=== PATIENT | female | born 1985 | race Caucasian/White ===

== ENCOUNTER 2023-03-25 01:57 | Emergency (ER) | payer MEDICAID, SELFPAY ==
[2023-03-25 02:00] VITALS: BP 120/64; PULSE 91; RESP 20; TEMP 36.3; BMI 31.2
--- NOTE | 2023-03-25 02:17 | CT_ITS ---
HISTORY: chest pain and abdominal pain. TECHNIQUE: CTA chest, abdomen, and pelvis was obtained after the intravenous administration of 100 mL Isovue-370 with sagittal and coronal reconstructed MIP views. A radiation dose optimization technique was used for this scan. 932 images. COMPARISON: None. FINDINGS: Chest- CENTRAL AIRWAYS: Grossly patent. LUNGS: Minimal dependent lower lobe atelectasis. PLEURA: No pneumothorax or significant pleural effusion. HEART/PERICARDIUM: Heart within normal limits in size. No significant pericardial effusion. VESSELS: No aortic aneurysm or dissection flap. No filling defect in the pulmonary arteries. MEDIASTINUM/CLARA: No pathologically enlarged lymphadenopathy. OSSEOUS STRUCTURES: Intact. Abdomen and pelvis- BOWEL: Bowel including appendix nondilated. Moderate stool in the colon. No focal pericolonic inflammatory change. PERITONEUM: No free air or significant ascites. LIVER/SPLEEN: No enhancing masses. GALLBLADDER: Gallbladder present. PANCREAS/KIDNEYS/ADRENAL GLANDS: Unremarkable. VESSELS: No abdominal aortic aneurysm or dissection flap. Patent abdominal aorta and origins of the celiac axis, superior and inferior mesenteric, bilateral renal, and bilateral iliac arteries. Right femoral approach central venous catheter tip in the right external iliac artery with trace air and hemorrhage in the right groin. PELVIC ORGANS: Unremarkable . BODY WALL: Tiny fat-containing umbilical hernia. OSSEOUS STRUCTURES: Intact. CT/CTA Chst, Abd, Pel W and/or WO IMPRESSION: No evidence for aortic dissection, aortic aneurysm, or pulmonary embolism. No acute abnormality identified in the chest. Moderate stool in the colon. Right femoral line as above. Electronically Signed: Nga Izaguirre MD at 8:17 EDT ,
--- NOTE | 2023-03-25 02:17 | EKG12_ITS ---
Test Reason : Blood Pressure : / mmHG Vent. Rate : 086 BPM Atrial Rate : 086 BPM P-R Int : 128 ms QRS Dur : 084 ms QT Int : 350 ms P-R-T Axes : 025 -05 008 degrees QTc Int : 418 ms Normal sinus rhythm Normal ECG Confirmed by RAUL MARQUEZ, PIPPA ([id number]), editor sound DIANE MEDLEY ([id number]) on 03/27/2023 11:00:40 A M Referred By: TL Confirmed By:CHAD CARTER MD
--- NOTE | 2023-03-25 02:20 | ED.VIS.CHEST ---
HPI <Dr. King Chase DO - Last Filed: 03/26/23 10:34> History of Present Illness Chief Complaint: Chest Pain Informant: patient and spouse/S.O. Narrative Narrative: Presenting here with multiple complaints. Reports severe chest abdominal pain this evening that almost made her call 911. However living 2 blocks away her sick mother brought her here. Reports been vomiting significantly for a week unable keep anything down for the last 2 days. Has dysuria for the past week saw healthcare provider on Macrobid with continued symptoms. In addition states she had an elective surgical [id number] 2 months ago she was 15 weeks in. She has had a menstrual period 2 weeks ago. States having severe migraines in for 2 days without any head trauma. Denies fevers. States had productive cough also. Denies any previous similar symptoms in the past. Prior Similar Symptoms: No PFSH <Dr. King Chase DO - Last Filed: 03/26/23 10:34> PFSH Medical History no medical history Home Medications nitrofurantoin monohydrate/macrocrystals 100 mg capsule 100 mg PO Q12H 03/25/23 [History Last Taken Unknown] ondansetron 4 mg disintegrating tablet 4 mg PO Q8H PRN PRN Nausea #10 tabs 03/25/23 [Rx Last Taken Unknown] polyethylene glycol 3350 17 gram/dose oral powder (Laxative PEG 3350) 17 g PO .qd-bid PRN constipation #119 grams 03/25/23 [Rx Last Taken Unknown] Allergy/AdvReac Type Severity Reaction Status Date / Time levofloxacin [From Levaquin] Allergy Hives Verified 03/25/23 02:49 Penicillins Allergy Hives Verified 03/25/23 02:49 Surgical History no surgical history Social History Smoking Status: Current every day smoker tobacco type: e-cigarettes ROS <Dr. King Chase DO - Last Filed: 03/26/23 10:34> ROS ED Constitutional Constitutional ED: Denies chills, fever(s) or sweats Eyes Eyes: Denies change in vision ENT ENT ED: Denies dysphagia or sore throat Cardiovascular Cardiovascular: Reports chest pain; Denies leg edema, palpitations or racing heartbeat Respiratory/Chest Respiratory/Chest: Reports cough; Denies dyspnea or dyspnea on exertion Gastrointestinal Gastrointestinal: Reports abdominal pain, nausea and vomiting; Denies diarrhea Genitourinary Genitourinary ED: Reports dysuria; Denies hematuria or urinary frequency Musculoskeletal Musculoskeletal: Denies back pain, extremity pain or neck pain Integumentary Denies rash or wounds Neurologic Neurologic: Reports headache(s); Denies paresthesias or weakness EXAM <Dr. King Chase DO - Last Filed: 03/26/23 10:34> Physical Exam Const Vital Signs: 03/25/23 02:00 03/25/23 05:00 03/25/23 05:32 Temperature 97.4 F L Temperature Source Oral Pulse Rate 91 73 77 Respiratory Rate 20 H 13 12 Blood Pressure 120/64 106/51 L 93/52 L Blood Pressure Mean 82 69 65 Pulse Ox 96 95 Oxygen Delivery Method Room Air Room Air Room Air 03/25/23 06:00 03/25/23 08:47 Temperature Temperature Source Pulse Rate 66 88 Respiratory Rate 22 H 14 Blood Pressure 106/67 100/54 L Blood Pressure Mean 80 69 Pulse Ox 94 94 Oxygen Delivery Method Room Air Room Air Positive well nourished and well developed General Appearance ED: well developed and NAD HEENT Reports moist mucous membranes normocephalic and atraumatic Eyes PERRL, EOMs intact bilaterally and conjunctivae normal General Eye ED: Yes normal appearance of both eyes Neck no lymphadenopathy and supple Neck Narrative: No meningismus. General: Negative for tenderness Chest Wall Chest: Negative for tenderness Resp normal respiratory effort and normal air movement Effort and Inspection: symmetric chest movement; Negative for respiratory distress Cardio regular rate, regular rhythm and no murmurs Peripheral Pulses: pulses 2+ throughout GI normal to inspection, nondistended, normoactive bowel sounds GI Narrative: Mild epigastric tenderness there is no guarding or rebound. Negative Alfonso's or McBurney's tenderness. Palpation: Negative for guarding or rebound tenderness present Back/Spine no CVA tenderness and no thoracic nor lumbar tenderness Extremity normal to inspection General Extremety ED: Negative for edema or tenderness General Extremity: Negative for edema Neuro oriented x3, CN's II-XII intact bilaterally and no sensory deficits noted Sensorium / Orientation: awake and alert Skin no rashes or lesions noted and no wounds <Dr. Jatin Manning MD - Last Filed: 03/25/23 09:33> Physical Exam Const Vital Signs: 03/25/23 02:00 03/25/23 05:00 03/25/23 05:32 Temperature 97.4 F L Temperature Source Oral Pulse Rate 91 73 77 Respiratory Rate 20 H 13 12 Blood Pressure 120/64 106/51 L 93/52 L Blood Pressure Mean 82 69 65 Pulse Ox 96 95 Oxygen Delivery Method Room Air Room Air Room Air 03/25/23 06:00 03/25/23 08:47 Temperature Temperature Source Pulse Rate 66 88 Respiratory Rate 22 H 14 Blood Pressure 106/67 100/54 L Blood Pressure Mean 80 69 Pulse Ox 94 94 Oxygen Delivery Method Room Air Room Air MDM <Dr. King Chase, DO - Last Filed: 03/26/23 10:34> MDM MDM Narrative Medical decision making narrative: Interventions / MDM: Differential diagnosis: Chest pain, ACS, aortic dissection, migraine headaches, UTI Diagnosis considered but do not suspect: N/A My EKG interpretation: Sinus rate of 86, no ST changes isolated T wave version lead III. Nonspecific. Imaging independently reviewed and interpreted by myself: CTA chest abdomen pelvis pending External documents reviewed: N/A Test considered but not ordered:N/A ED course: Patient vital stable no focal neurologic deficits, no meningismus. Patient with multiple complaints headache severe chest pains abdominal pain with vomiting. EKG normal. Abdominal labs, troponin. With reports severe pain chest abdomen established for preparation for dissection rule out. Reports persistent dysuria. Urine also obtain. She treated with fluids, Reglan and Benadryl for her nausea and headache symptoms. 0430: Nursing increasing difficulty try to get IV access. Evaluated ultrasound, she had left sided brachial vein, attempted, flash of blood, however would not draw back and infiltrated with saline. Evaluate right arm, she had no cephalic or basilar veins. She had brachial vein next to the brachial artery, however this was 2 cm deep, attempted access x2, initial trial had flash of blood, however there was no drawback. Reattempted with redirectional of 20-gauge Angiocath, unable to access. Discussed with patient this time for central line access to obtain blood and plan on CT scans. Risks and benefits discussed. 0530: Written consent for central line placement with risks and benefits. Due to hospital policy from radiology no IV contrast dye through IJ or EJ. Only subclavian's versus femoral lines. Discussed femoral line placement. Patient placed in reverse Trendelenburg, skin was prepped with ChloraPrep. 1% lidocaine for local analgesia. Ultrasound-guided Seldinger technique isolation of the vein for stick with dark blood return. Guidewire skin incision dilation triple-lumen cath placed with no difficulties. Secured. All 3 lines flushed with dark blood return. Biopatch was placed. Dressing placed over. Patient tolerated procedure well. 0700: Clinically feeling much better nausea move take improving. Her labs White count of 12.2 hemoglobin 12 normal lipase and liver enzymes are creatinine 0.84. Troponin was negative. CT scan is pending at this time for chest abdomen pelvis. Pending urine results. Patient will be signed out to morning physician, Dr. Manning. Re-evaluation: Disposition discussed with patient/family/significant other: Patient and significant other Case discussed with consulting clinician: N/A This note was generated with [employer] dictation software. It may contain incorrect words, spelling, and punctuation that were not noted in checking the note before signing. Lab Data Attestation: I reviewed the patient's lab results. Labs: Laboratory Results - last 24 hr 03/25/23 03/25/23 03/25/23 05:28 05:28 06:00 WBC Cancelled 12.2 H Corrected WBC Cancelled RBC Cancelled 3.86 L Hgb Cancelled 12.1 Hct Cancelled 35.9 L MCV Cancelled 93.0 MCH Cancelled 31.3 MCHC Cancelled 33.7 RDW Std Deviation Cancelled 50.3 H RDW Coeff of Malina Cancelled 14.9 H Plt Count Cancelled 315 MPV Cancelled 11.0 Immature Gran % (Auto) Cancelled 0.300 Neut % (Auto) Cancelled 76.0 H Lymph % (Auto) Cancelled 17.7 L [place] % (Auto) Cancelled 5.1 Eos % (Auto) Cancelled 0.7 Baso % (Auto) Cancelled 0.2 Absolute Neuts (auto) Cancelled 9.3 H Absolute Lymphs (auto) Cancelled 2.15 Total Counted Cancelled Neutrophils % (Manual) Cancelled Band Neutrophils % Cancelled Lymphocytes % (Manual) Cancelled Monocytes % (Manual) Cancelled Eosinophils % (Manual) Cancelled Basophils % (Manual) Cancelled Metamyelocytes % Cancelled Myelocytes % Cancelled Promyelocytes % Cancelled Blast Cells % Cancelled Plasma Cell % (Manual) Cancelled Other Cells % Cancelled Nucleated RBC % Cancelled 0 Nucleated RBCs/100 WBC Cancelled Differential Comment Cancelled Diff Path Review Cancelled Hypersegmented Neuts Cancelled Atypical Lymphocytes Cancelled Reactive Lymphocytes Cancelled Smudge Cells Cancelled Toxic Granulation Cancelled Toxic Vacuolation Cancelled Dohle Bodies Cancelled Tamra Rods Cancelled Platelet Estimate Cancelled Plt Morphology Comment Cancelled RBC Morphology Cancelled Cancelled Polychromasia Cancelled Hypochromasia Cancelled Poikilocytosis Cancelled Basophilic Stippling Cancelled Anisocytosis Cancelled Microcytosis Cancelled Macrocytosis Cancelled Spherocytes Cancelled Sickle Cells Cancelled Target Cells Cancelled Tear Drop Cells Cancelled Ovalocytes Cancelled Stomatocytes Cancelled Benson-Gwinn Bodies Cancelled Brodnax Cells Cancelled Bite Cells Cancelled Crenated Cell Cancelled Acanthocytes (Spur) Cancelled Rouleaux Cancelled Schistocytes Cancelled PT Cancelled INR Cancelled APTT Cancelled Sodium 137 Potassium 4.2 Chloride 104 Carbon Dioxide 29.0 Anion Gap 4 L BUN 12 Creatinine 0.84 Estim Creat Clear Calc 79.95 Est GFR (MDRD) Af Amer 98 Est GFR (MDRD) Non-Af 81 BUN/Creatinine Ratio 14.3 Glucose 110 H Calcium 9.5 Total Bilirubin 0.30 AST 16 ALT 21 Alkaline Phosphatase 62 Troponin I High Sens 7 Total Protein 7.3 Albumin 3.8 Globulin 3.5 Albumin/Globulin Ratio 1.1 Lipase 35 Serum , Qual NEGATIVE Urine Color Urine Clarity Urine pH Ur Specific Moira Urine Protein Urine Glucose (UA) Urine Ketones Urine Occult Blood Urine Nitrite Urine Bilirubin Urine Urobilinogen Ur Leukocyte Esterase 03/25/23 03/25/23 06:17 06:55 WBC Corrected WBC RBC Hgb Hct MCV MCH MCHC RDW Std Deviation RDW Coeff of Malina Plt Count MPV Immature Gran % (Auto) Neut % (Auto) Lymph % (Auto) [place] % (Auto) Eos % (Auto) Baso % (Auto) Absolute Neuts (auto) Absolute Lymphs (auto) Total Counted Neutrophils % (Manual) Band Neutrophils % Lymphocytes % (Manual) Monocytes % (Manual) Eosinophils % (Manual) Basophils % (Manual) Metamyelocytes % Myelocytes % Promyelocytes % Blast Cells % Plasma Cell % (Manual) Other Cells % Nucleated RBC % Nucleated RBCs/100 WBC Differential Comment Diff Path Review Hypersegmented Neuts Atypical Lymphocytes Reactive Lymphocytes Smudge Cells Toxic Granulation Toxic Vacuolation Dohle Bodies Tamra Rods Platelet Estimate Plt Morphology Comment RBC Morphology Polychromasia Hypochromasia Poikilocytosis Basophilic Stippling Anisocytosis Microcytosis Macrocytosis Spherocytes Sickle Cells Target Cells Tear Drop Cells Ovalocytes Stomatocytes Benson-Gwinn Bodies Brodnax Cells Bite Cells Crenated Cell Acanthocytes (Spur) Rouleaux Schistocytes PT 14.5 INR 1.1 APTT 29.8 Sodium Potassium Chloride Carbon Dioxide Anion Gap BUN Creatinine Estim Creat Clear Calc Est GFR (MDRD) Af Amer Est GFR (MDRD) Non-Af BUN/Creatinine Ratio Glucose Calcium Total Bilirubin AST ALT Alkaline Phosphatase Troponin I High Sens Total Protein Albumin Globulin Albumin/Globulin Ratio Lipase Serum , Qual Urine Color Yellow Urine Clarity Clear Urine pH 6.0 Ur Specific [place] 1.025 Urine Protein 30 H Urine Glucose (UA) Normal Urine Ketones 50 H Urine Occult Blood 10 H Urine Nitrite Negative Urine Bilirubin Negative Urine Urobilinogen Normal Ur Leukocyte Esterase 25 H Radiography Diagnostic Testing: Clinical Impression(s) from Imaging Studies Chest/Abdomen/Pelvis CTA 03/25/23 02:17 IMPRESSION: No evidence for aortic dissection, aortic aneurysm, or pulmonary embolism. No acute abnormality identified in the chest. Moderate stool in the colon. Right femoral line as above. Electronically Signed: Nga Izaguirre MD at 8:17 EDT Reading Location ID and State: [facility] / [place] Tel , Service support , <Dr. Jatin Manning MD - Last Filed: 03/25/23 09:33> [facility] Lab Data Labs: Laboratory Results - last 24 hr 03/25/23 03/25/23 03/25/23 05:28 05:28 06:00 WBC Cancelled 12.2 H Corrected WBC Cancelled RBC Cancelled 3.86 L Hgb Cancelled 12.1 Hct Cancelled 35.9 L MCV Cancelled 93.0 MCH Cancelled 31.3 MCHC Cancelled 33.7 RDW Std Deviation Cancelled 50.3 H RDW Coeff of Malina Cancelled 14.9 H Plt Count Cancelled 315 MPV Cancelled 11.0 Immature Gran % (Auto) Cancelled 0.300 Neut % (Auto) Cancelled 76.0 H Lymph % (Auto) Cancelled 17.7 L [place] % (Auto) Cancelled 5.1 Eos % (Auto) Cancelled 0.7 Baso % (Auto) Cancelled 0.2 Absolute Neuts (auto) Cancelled 9.3 H Absolute Lymphs (auto) Cancelled 2.15 Total Counted Cancelled Neutrophils % (Manual) Cancelled Band Neutrophils % Cancelled Lymphocytes % (Manual) Cancelled Monocytes % (Manual) Cancelled Eosinophils % (Manual) Cancelled Basophils % (Manual) Cancelled Metamyelocytes % Cancelled Myelocytes % Cancelled Promyelocytes % Cancelled Blast Cells % Cancelled Plasma Cell % (Manual) Cancelled Other Cells % Cancelled Nucleated RBC % Cancelled 0 Nucleated RBCs/100 WBC Cancelled Differential Comment Cancelled Diff Path Review Cancelled Hypersegmented Neuts Cancelled Atypical Lymphocytes Cancelled Reactive Lymphocytes Cancelled Smudge Cells Cancelled Toxic Granulation Cancelled Toxic Vacuolation Cancelled Dohle Bodies Cancelled Tamra Rods Cancelled Platelet Estimate Cancelled Plt Morphology Comment Cancelled RBC Morphology Cancelled Cancelled Polychromasia Cancelled Hypochromasia Cancelled Poikilocytosis Cancelled Basophilic Stippling Cancelled Anisocytosis Cancelled Microcytosis Cancelled Macrocytosis Cancelled Spherocytes Cancelled Sickle Cells Cancelled Target Cells Cancelled Tear Drop Cells Cancelled Ovalocytes Cancelled Stomatocytes Cancelled Benson-Gwinn Bodies Cancelled Brodnax Cells Cancelled Bite Cells Cancelled Crenated Cell Cancelled Acanthocytes (Spur) Cancelled Rouleaux Cancelled Schistocytes Cancelled PT Cancelled INR Cancelled APTT Cancelled Sodium 137 Potassium 4.2 Chloride 104 Carbon Dioxide 29.0 Anion Gap 4 L BUN 12 Creatinine 0.84 Estim Creat Clear Calc 79.95 Est GFR (MDRD) Af Amer 98 Est GFR (MDRD) Non-Af 81 BUN/Creatinine Ratio 14.3 Glucose 110 H Calcium 9.5 Total Bilirubin 0.30 AST 16 ALT 21 Alkaline Phosphatase 62 Troponin I High Sens 7 Total Protein 7.3 Albumin 3.8 Globulin 3.5 Albumin/Globulin Ratio 1.1 Lipase 35 Serum , Qual NEGATIVE Urine Color Urine Clarity Urine pH Ur Specific [place] Urine Protein Urine Glucose (UA) Urine Ketones Urine Occult Blood Urine Nitrite Urine Bilirubin Urine Urobilinogen Ur Leukocyte Esterase 03/25/23 03/25/23 06:17 06:55 WBC Corrected WBC RBC Hgb Hct MCV MCH MCHC RDW Std Deviation RDW Coeff of Malina Plt Count MPV Immature Gran % (Auto) Neut % (Auto) Lymph % (Auto) [place] % (Auto) Eos % (Auto) Baso % (Auto) Absolute Neuts (auto) Absolute Lymphs (auto) Total Counted Neutrophils % (Manual) Band Neutrophils % Lymphocytes % (Manual) Monocytes % (Manual) Eosinophils % (Manual) Basophils % (Manual) Metamyelocytes % Myelocytes % Promyelocytes % Blast Cells % Plasma Cell % (Manual) Other Cells % Nucleated RBC % Nucleated RBCs/100 WBC Differential Comment Diff Path Review Hypersegmented Neuts Atypical Lymphocytes Reactive Lymphocytes Smudge Cells Toxic Granulation Toxic Vacuolation Dohle Bodies Tamra Rods Platelet Estimate Plt Morphology Comment RBC Morphology Polychromasia Hypochromasia Poikilocytosis Basophilic Stippling Anisocytosis Microcytosis Macrocytosis Spherocytes Sickle Cells Target Cells Tear Drop Cells Ovalocytes Stomatocytes Benson-Gwinn Bodies Brodnax Cells Bite Cells Crenated Cell Acanthocytes (Spur) Rouleaux Schistocytes PT 14.5 INR 1.1 APTT 29.8 Sodium Potassium Chloride Carbon Dioxide Anion Gap BUN Creatinine Estim Creat Clear Calc Est GFR (MDRD) Af Amer Est GFR (MDRD) Non-Af BUN/Creatinine Ratio Glucose Calcium Total Bilirubin AST ALT Alkaline Phosphatase Troponin I High Sens Total Protein Albumin Globulin Albumin/Globulin Ratio Lipase Serum , Qual Urine Color Yellow Urine Clarity Clear Urine pH 6.0 Ur Specific [place] 1.025 Urine Protein 30 H Urine Glucose (UA) Normal Urine Ketones 50 H Urine Occult Blood 10 H Urine Nitrite Negative Urine Bilirubin Negative Urine Urobilinogen Normal Ur Leukocyte Esterase 25 H Radiography Diagnostic Testing: Clinical Impression(s) from Imaging Studies Chest/Abdomen/Pelvis CTA 03/25/23 02:17 IMPRESSION: No evidence for aortic dissection, aortic aneurysm, or pulmonary embolism. No acute abnormality identified in the chest. Moderate stool in the colon. Right femoral line as above. Electronically Signed: Nga Izaguirre MD at 8:17 EDT , Treatment and Re-Evaluation Comments:: Patient checked out to me. Clinically patient is doing well. Vital signs are normal. CT chest, abdomen, pelvis results were noted I reviewed the images and the results with her I agree with. Basically significant amount of stool in the colon, and negative for anything acute in the chest, abdomen, pelvis. Negative for aortic dissection, aneurysm, and for PE. Discussed with the patient, she has been constipated lately. It is possible that is what was causing this. Cardiac testing was already done and unremarkable. I offered her enema, other medications here, she declines, her urinalysis is noted and unremarkable. We discussed prescriptions, she would except a prescription for MiraLAX and Zofran, does not sound like she is having a lot of abdominal pains it does not require dicyclomine right now, it was more chest discomfort. Procedure note: Right femoral vein central line removal --sutures gently cut with a #10 blade, removed without difficulty, line removed without difficulty in its entirety, pressure held with gauze, dressing placed afterwards, no significant bleeding, tolerated well no complications. Discharge Plan Triage Chief Complaint: Chest Pain ED Provider: King Chase Dx/Rx/DC Orders Clinical Impression: Dysuria, Headache, Abdominal pain, Chest pain, Vomiting, Constipation Instructions: ED Chest Pain, Noncardiac, ED Constipation (Adult) Prescriptions: New ondansetron [ondansetron] 4 mg tablet,disintegrating 4 mg PO Q8H PRN PRN (Reason: Nausea) Qty: 10 0RF polyethylene glycol 3350 [Laxative PEG 3350] 17 gram/dose powder 17 g PO .qd-bid PRN (Reason: constipation) Qty: 119 0RF No Action nitrofurantoin monohyd/m-cryst 100 mg capsule 100 mg PO Q12H Patient Comments: TAKE 1 CAPSULE ORALLY EVERY 12 HOURS WITH A MEAL/FOOD SWALLOW WHOLE DO NOT OPEN/CRUSH/DISSOLVE/CHEW Primary Care Provider: Care Physician,No Primary Referrals: Donis Regalado DO [Med Staff - Technology Applications Consultant] - 1 Week if not improving Disposition Disposition: Home, Self Care Discharge Date/Time: 03/25/23 09:36
[2023-03-25 05:00] VITALS: BP 106/51; PULSE 73; RESP 13; O2SAT 96
[2023-03-25 05:32] VITALS: BP 93/52; PULSE 77; RESP 12; O2SAT 95
[2023-03-25] MEDS: 0.9% Normal Saline 1,000 ML 1000 ML IV (05:40)
[2023-03-25] MEDS: Metoclopramide 10 MG/2 ML Vial IV (05:43)
[2023-03-25] MEDS: DiphenhydrAMINE 50 MG/ML Syringe 25 MG IV (05:45)
[2023-03-25 06:00] VITALS: BP 106/67; PULSE 66; RESP 22; O2SAT 94
[2023-03-25 06:03] LABS: Internal QC Validated? YES +Cl - CLEAR BKGD; Pregnancy, Serum, hCG Quali. NEGATIVE Negative
[2023-03-25 06:05] LABS: ALB/GLOB Ratio 1.1 RATIO (0.9-2.4); AST(SGOT) 16 U/L (15-37); Alanine Aminotransfer ALT/SGPT 21 U/L (13-56); Albumin, Serum 3.8 g/dL (3.2-5.0); Alkaline Phosphatase 62 U/L (45-117); Anion Gap 4 (5-15); BUN 12 mg/dL (7-18); BUN/Creat Ratio 14.3 RATIO (10-20); Calcium,Total 9.5 mg/dL (8.5-10.1); Chloride 104 mmol/L (98-107); Creatinine, Serum 0.84 mg/dL (0.55-1.02); EST Glomerular Filtration Rate 81 mL/min (>60); Est Glom Filt Rate - Afr Amer 98 mL/min (>60); Estimated Creatinine Clearance 79.95 ml/min; Globulin 3.5 g/dL (2.2-4.2); Glucose 110 mg/dL (74-106); Lipase 35 U/L (13-75); Potassium 4.2 mmol/L (3.5-5.1); Protein, Total 7.3 g/dL (6.4-8.2); Sodium Level 137 mmol/L (136-145); Troponin-I HS 7 pg/mL (3.0-54.0)
[2023-03-25 06:08] LABS: Absolute Lymphocyte Count 2.15 X10^3/uL (0.83-4.51); Absolute Neutrophil Count 9.3 X10^3/uL (2.0-7.7); Basophil# 0.03 X10^3/uL; Basophil% 0.2 % (0-1); Eosinophil# 0.08 X10^3/uL; Eosinophils% 0.7 % (0-5); Hematocrit 35.9 % (37-47); Hemoglobin 12.1 g/dL (12.0-15.0); Lymphocyte # 2.15 X10^3/ul (0.83-4.51); Lymphocyte % 17.7 % (19-41); Mean Corp Hgb Conc 33.7 g/dL (32-36); Mean Corpuscular Hgb 31.3 pg (27.0-32.0); Monocyte# 0.62 X10^3/uL; Monocyte% 5.1 % (0-10); NRBC Flagged by Analyzer 0 % (0-5); Neutrophil # 9.26 X10^3/uL (2.7-7.7); Platelet Count 315 K/mm3 (150-450); RBC Distribution Width CV 14.9 % (11.6-14.6); RBC Distribution Width SD 50.3 fl (35.1-43.9); Red Blood Count 3.86 M/mm3 (4.2-5.4); White Blood Count 12.2 K/mm3 (4.4-11.0)
[2023-03-25 06:33] LABS: International Normalized Ratio 1.1; Prothrombin Time (Protime)PT. 14.5 SECONDS (11.7-14.9)
[2023-03-25 06:34] LABS: Partial Thromboplast Time 29.8 Seconds (24.1-36.2)
--- NOTE | 2023-03-25 06:35 | ED.RN ---
0500: PT IS AN EXTREMELY DIFFICULT IV STICK. NUMEROUS ATTEMPTS BY VARIOUS NURSES UNSUCCESSFUL. CONSENT OBTAINED FOR RIGHT FEMORAL CENTRAL LINE TO BE PERFORMED BY DR. REBOLLEDO.
[2023-03-25 07:07] LABS: Mucous, Urine 0 SEEN /hpf (<or=2+)
[2023-03-25 07:08] LABS: Color, Urine Yellow (Yellow); Glucose, Dipstick Normal (Normal); Ketone-Dipstick 50 mg/dl (Negative); Leukocyte Esterase-Dipstick 25 /ul (Negative); Nitrite-Dipstick Negative (Negative); Occult Blood-Urine 10 /ul (Negative); Protein-Dipstick 30 mg/dl (Negative); Specific Gravity, Urine 1.025 (1.002-1.030); Urine Bilirubin Dipstick Negative (Negative); Urine Clarity Clear (Clear); Urine Urobilinogen Normal (Normal)
[2023-03-25 08:47] VITALS: BP 100/54; PULSE 88; RESP 14; O2SAT 94
[2023-03-25 09:34] LABS: Bacteria 1+ /hpf (None Seen); Red Blood Cells-Urine 0-5 SEEN /hpf (0-5); Squamous Epithelial Cells - UA 0-5 SEEN /hpf (5-10); White Blood Cells 5-10 SEEN /hpf (0-5)
[2023-03-25 09:36] VITALS: BP 129/88; PULSE 72; RESP 16; O2SAT 98
== END 2023-03-25 09:36 | disposition home or self-care (01) ==
PROVIDERS: Emergency Provider Emergency Medicine; Visit Provider Emergency Medicine
DX: R30.0 Dysuria (principal); R11.2 Nausea with vomiting, unspecified; R07.9 Chest pain, unspecified; K59.00 Constipation, unspecified; R10.9 Unspecified abdominal pain; F17.290 Nicotine dependence, other tobacco product, uncomplicated; R51.9 Headache, unspecified
CPT/HCPCS: 36556; 71275; 74174; 80053; 81001; 83690; 84484; 84703; 85025; 85610; 85730; 93005; 96374; 96375; 99283; J7030; Q9967; A4216

== ENCOUNTER 2023-04-13 05:18 | Emergency (ER) | payer MEDICAID, SELFPAY ==
[2023-04-13 05:19] VITALS: BP 136/65; PULSE 110; RESP 18; TEMP 37; O2SAT 97; BMI 32.8
--- NOTE | 2023-04-13 05:20 | ED.VIS.CHEST ---
HPI History of Present Illness Chief Complaint: Chest Pain Detail of Chief Complaint: Intermittent for months. Informant: patient Onset/Context/Timing Onset: Month(s) Activity at onset: gradual Timing: Intermittent Quality: Positive for Sharp and Stabbing Location: Right Chest and Left Chest Current Severity: Moderate Maximum Severity: Moderate Worsened By: Nothing Relieved By: Nothing Associated Symptoms: Negative for Nausea, Vomiting, Diaphoresis, Dyspnea, Cough, Fever, Lightheadedness, Acid Reflux or Palpitations Narrative Narrative: 37-year-old female history of drug abuse. Currently is abusing fentanyl. States that she has had intermittent chest pain for months. It comes and goes. Not particularly made better or worse by anything. Not exertional. She is never any history of DVT or PE. No cardiac history. Denies any chest wall trauma. Denies any recent travel, surgery or immobilization. She was seen for the same pain 19 days ago in this emergency department had extensive work-up lab work and a CTA of her chest abdomen pelvis all of which was negative. There was no PE or DVT. She is crying and upset. There is definitely an anxiety component here. Prior Similar Symptoms: Yes Recent Illness/Hospitalization: No CVD Risk Factors: Negative for Hypertension or Diabetes PE Risk Factors: Negative for Recent Travel/Surgery, Recent Immobilization, Prior DVT or PE, Cancer or OCP + Smoking + >/=35 TAD Risk Factors: Negative for Marfan's Syndrome PFSH PFSH Home Medications nitrofurantoin monohydrate/macrocrystals 100 mg capsule 100 mg PO Q12H 03/25/23 [History Last Taken Unknown] ondansetron 4 mg disintegrating tablet 4 mg PO Q8H PRN PRN Nausea #10 tabs 03/25/23 [Rx Last Taken Unknown] polyethylene glycol 3350 17 gram/dose oral powder (Laxative PEG 3350) 17 g PO .qd-bid PRN constipation #119 grams 03/25/23 [Rx Last Taken Unknown] Allergy/AdvReac Type Severity Reaction Status Date / Time levofloxacin [From Levaquin] Allergy Hives Verified 03/25/23 02:49 Penicillins Allergy Hives Verified 03/25/23 02:49 Social History Smoking Status: Current every day smoker tobacco type: e-cigarettes ROS ROS ED ROS Narrative Chest pain. Review of Systems ROS Unobtainable: Denies due to encephalopathy Constitutional Constitutional ED: Denies chills or fever(s) Eyes Eyes: Reports none Cardiovascular Cardiovascular: Reports as per HPI and chest pain Respiratory/Chest Respiratory/Chest: Denies cough Gastrointestinal Gastrointestinal: Denies abdominal pain, nausea or vomiting Genitourinary Genitourinary ED: Denies dysuria Musculoskeletal Musculoskeletal: Denies arthralgias Integumentary Denies abscess Neurologic Neurologic: Denies headache(s) Psychiatric Psychiatric: Denies anxiety Endocrine Endocrinology: Denies cold intolerance Hematologic/Lymphatic Hematologic/Lymphatic: Denies easy bleeding Allergic/Immunologic Allergic/Immunologic ED: Denies mouth swelling EXAM Physical Exam Narrative Exam Narrative: Well-appearing 37-year-old female. Vital signs are stable afebrile. She is crying and emotionally upset. Significant other is at the bedside. H EENT exam unremarkable. Neck nontender no JVD. No lymphadenopathy. Lungs clear to auscultation bilaterally. Heart regular rhythm. Rate of 90. No murmur. Chest wall nontender. Abdomen soft nontender. Moving all 4 extremities. Equal symmetrical radial pulses. Calves are nontender without edema or cords. Back nontender. Skin unremarkable except for multiple tattoos. No rashes. She is awake and alert. She is moving all 4 extremities. Const Positive well nourished and well developed; Negative for obese, cachectic, contractures or unkempt General Appearance ED: well developed and NAD; Negative for unkempt, cachectic, contractures or pallor Nutritional Appearance: Negative for cachectic or obese HEENT Reports moist mucous membranes normocephalic and atraumatic; Negative for trauma or tenderness Eyes EOMs intact bilaterally General Eye ED: Negative for pale conjunctiva or scleral icterus Neck no lymphadenopathy, supple and no JVD General: Negative for tenderness Chest Wall inspection of chest normal and palpation of chest normal Chest: Negative for tenderness Resp normal respiratory effort and clear to auscultation bilaterally Effort and Inspection: Negative for respiratory distress Auscultation: Negative for rales, rhonchi or wheezes Cardio regular rate, regular rhythm, S1 normal heart sound, S2 normal heart sound and no murmurs Peripheral Pulses: pulses 2+ throughout GI normal to inspection, nondistended, normoactive bowel sounds, soft to palpation, non-tender, non-distended and no masses Back/Spine no CVA tenderness and no thoracic nor lumbar tenderness General Back: Negative for CVA tenderness Cervical Spine: Negative for cervical spine tenderness Extremity normal to inspection General Extremety ED: Negative for edema, pulses abnormal or tenderness General Extremity: Negative for edema or pulses abnormal Neuro oriented x3 and CN's II-XII intact bilaterally Sensorium / Orientation: awake, alert, oriented to person, oriented to place and oriented to time; Negative for confused, lethargic or stuporous Motor Exam: strength 5/5 throughout Psych mental status grossly normal Appearance: Negative for unkempt Attitude: No agitated Mood & Affect: Negative for depressed, anxious or tearful Skin no rashes or lesions noted and no wounds General Skin Exam: Negative for jaundice or pallor Rashes: No rashes noted Trauma: Negative for abrasion Heart Score History: Slightly/Non-Suspicious ECG: Normal Age: </= 45 years Risk Factors: No Risk Factors Troponin: </= Normal Limit Score: 0 MDM MDM MDM Narrative Medical decision making narrative: 37-year-old emotionally upset female with a history of drug abuse. Having atypical nonexertional chest pain. She had extensive work-up 19 days ago here including a CTA of her chest abdomen and pelvis all was unremarkable. Troponin was normal. There was no PE. I discussed with her that her exam is unremarkable. She has had extensive work-up. I offered her detox which she does not want to be admitted to the hospital for. She can be discharged home. Motrin and Tylenol for pain. Follow-up with 180 or decide if she would like inpatient detox. History & Record Review Discussion w/independent historian: Patient Lab Data Lab results narrative: I reviewed the patient's recent evaluation about 19 days ago. It was unremarkable. CBC, chemistry, troponin, and UA were all negative. CTA of the chest abdomen pelvis was unremarkable with no signs of PE nor dissection. EKG today is unremarkable with a rate of 85. Rhythm Strip Rhythm Strip: Sinus Rhythm Rate: 85 Ectopy: None EKG Initial EKG: Attestation: I personally reviewed and interpreted this EKG as follows: Interpretation: Sinus Rhythm and No Acute Injury Pattern Comments: Normal sinus rhythm rate 85 no acute signs of MA, nor ischemia nor pericarditis. No S1Q3T3. Discharge Plan Triage Chief Complaint: Chest Pain ED Provider: Provider,Ed Physician Dx/Rx/DC Orders Clinical Impression: History of drug abuse, Chest pain, Anxiety Instructions: ED Chest Pain, Uncertain Cause, ED Drug Abuse Prescriptions: No Action nitrofurantoin monohyd/m-cryst 100 mg capsule 100 mg PO Q12H Patient Comments: TAKE 1 CAPSULE ORALLY EVERY 12 HOURS WITH A MEAL/FOOD SWALLOW WHOLE DO NOT OPEN/CRUSH/DISSOLVE/CHEW ondansetron [ondansetron] 4 mg tablet,disintegrating 4 mg PO Q8H PRN PRN (Reason: Nausea) Qty: 10 0RF polyethylene glycol 3350 [Laxative PEG 3350] 17 gram/dose powder 17 g PO .qd-bid PRN (Reason: constipation) Qty: 119 0RF Primary Care Provider: Care Physician,No Primary Referrals: Esha Gatica [Non-Staff] - As soon as possible Care Physician,No Primary [Primary Care Provider] - [facility] [Non-Staff] - As soon as possible Activity Restrictions/Additional Instructions: I reviewed your ER visit 2 to 3 weeks ago. It was completely normal. Including a CAT scan of your chest abdomen and pelvis. There was no blood clots. No signs of heart attack. Motrin and Tylenol for pain Strongly consider following up with the [facility] program for outpatient treatment for drug abuse. Disposition Disposition: Home, Self Care
--- NOTE | 2023-04-13 05:50 | EKG12_ITS ---
Test Reason : CP Blood Pressure : / mmHG Vent. Rate : 085 BPM Atrial Rate : 085 BPM P-R Int : 118 ms QRS Dur : 078 ms QT Int : 362 ms P-R-T Axes : 040 004 007 degrees QTc Int : 430 ms Normal sinus rhythm Normal ECG Confirmed by BRENT MARQUEZ, NATIVIDAD ([id number]), features editor DIANE MEDLEY ([id number]) on 04/13/2023 1:23:05 PM Referred By: Walter Confirmed By:NATIVIDAD KENNEDY MD
[2023-04-13 06:00] VITALS: BP 136/65; PULSE 99; RESP 18; O2SAT 97
== END 2023-04-13 06:00 | disposition home or self-care (01) ==
LOC: ED 05:37
PROVIDERS: Emergency Provider Emergency Medicine; Visit Provider Emergency Medicine
DX: R07.89 Other chest pain (principal); F11.10 Opioid abuse, uncomplicated; F41.9 Anxiety disorder, unspecified; F17.290 Nicotine dependence, other tobacco product, uncomplicated
CPT/HCPCS: 93005; 99282

== ENCOUNTER 2023-05-01 19:07 | Emergency (ER) | payer MEDICAID, SELFPAY ==
[2023-05-01 19:08] VITALS: BP 147/101; PULSE 56; RESP 18; TEMP 36.6; O2SAT 98; BMI 31.7
--- NOTE | 2023-05-01 20:08 | EDS_ITS ---
HPI History of Present Illness Chief Complaint: General Illness Informant: patient Onset/Context/Timing Onset: Month(s) Context: Gradual Onset Timing: Continuous Current Severity: Mild Maximum Severity: Mild Narrative Narrative: 37-year-old female history of fentanyl abuse. Was seen here several weeks ago and extensive work-up for chest pain. Diagnosed with a possible UTI and placed on antibiotics. States that she no longer uses fentanyl. Denies any IV drug abuse. States she just does not feel well. She has had body aches. Has had intermittent nausea vomiting diarrhea. Sent to the symptoms ongoing for months. She thinks she may have an autoimmune disease or possibly thyroid disease. Prior similar symptoms: Yes Recent Illness/Hospitalization: No PFSH PFSH Home Medications nitrofurantoin monohydrate/macrocrystals 100 mg capsule 100 mg PO Q12H 03/25/23 [History Last Taken Unknown] ondansetron 4 mg disintegrating tablet 4 mg PO Q8H PRN PRN Nausea #10 tabs 03/25/23 [Rx Last Taken Unknown] polyethylene glycol 3350 17 gram/dose oral powder (Laxative PEG 3350) 17 g PO .qd-bid PRN constipation #119 grams 03/25/23 [Rx Last Taken Unknown] Allergy/AdvReac Type Severity Reaction Status Date / Time levofloxacin [From Levaquin] Allergy Hives Verified 05/01/23 19:13 Penicillins Allergy Hives Verified 05/01/23 19:13 Social History Smoking Status: Current every day smoker tobacco type: e-cigarettes ROS ROS ED ROS Narrative Nausea vomiting diarrhea. Anxiety. Body aches. Subjective fever. Review of Systems ROS Unobtainable: Denies due to encephalopathy Constitutional Constitutional ED: Reports chills and fever(s) Eyes Eyes: Denies blurry vision ENT ENT ED: Reports sore throat; Denies ear pain or rhinorrhea Cardiovascular Cardiovascular: Denies chest pain Respiratory/Chest Respiratory/Chest: Denies cough or dyspnea Gastrointestinal Gastrointestinal: Reports diarrhea, nausea and vomiting; Denies abdominal pain, constipation or melena Genitourinary Genitourinary ED: Denies dysuria or hematuria Musculoskeletal Musculoskeletal: Denies arthralgias Integumentary Denies abscess Neurologic Neurologic: Denies headache(s) Psychiatric Psychiatric: Denies anxiety or depression Endocrine Endocrinology: Denies cold intolerance Hematologic/Lymphatic Hematologic/Lymphatic: Reports none Allergic/Immunologic Allergic/Immunologic ED: Denies mouth swelling, tongue swelling or urticaria EXAM Physical Exam Narrative Exam Narrative: 37-year-old female. Vital signs stable afebrile. H EENT exam normal. Posterior pharynx normal. Neck nontender no lymphadenopathy no mass. Patient states she feels a mass in her neck there is nothing swollen there is no mass. There is no lymphadenopathy. There is no abscess. Trachea midline. Lungs clear equal symmetric bilaterally. Heart regular rate and rhythm rate about 60 no murmur. Chest wall nontender. Abdomen soft nontender. Moving all 4 extremities. Multiple tattoos. No rashes. No abscess. No track eubanks. No edema. Neurologically she is awake alert. Anxious but no focal motor deficits. Back normal. Const Vital Signs: 05/01/23 19:08 Temperature 97.9 F Temperature Source Temporal Pulse Rate 56 L Respiratory Rate 18 Blood Pressure 147/101 H Blood Pressure Mean 116 Pulse Ox 98 Positive well nourished and well developed; Negative for cachectic, contractures or unkempt General Appearance ED: well developed and NAD; Negative for unkempt, cachectic, contractures, cyanotic, diaphoretic or pallor Nutritional Appearance: Negative for cachectic HEENT Reports moist mucous membranes; Denies dry mucous membranes Negative for trauma or tenderness Mouth ED: No dry mucous membranes Mouth: No dry mucous membranes Eyes PERRL and EOMs intact bilaterally General Eye ED: Negative for pale conjunctiva or scleral icterus Neck no lymphadenopathy, supple and no JVD General: Negative for tenderness Lymph Lymphatic: Negative for other Chest Wall inspection of chest normal and palpation of chest normal Chest: Negative for other Resp normal respiratory effort and clear to auscultation bilaterally Effort and Inspection: Negative for retractions Auscultation: Negative for rales, rhonchi or wheezes Cardio regular rate, regular rhythm, S1 normal heart sound, S2 normal heart sound and no murmurs Rhythm: Negative for abnormal rhythm GI normal to inspection, nondistended, normoactive bowel sounds, non-tender, non- distended and no masses Inspection: Negative for abdominal distention Auscultation: normoactive bowel sounds Palpation: soft; Negative for tender, guarding, mass or rebound tenderness present Back/Spine no CVA tenderness General Back: Negative for CVA tenderness or other Cervical Spine: Negative for cervical spine tenderness Thoracic Spine / Upper Back: Negative for thoracic spinal tenderness Lumbar Spine / Lower Back: Negative for lumbar spinal tenderness Extremity normal to inspection General Extremety ED: Negative for edema or tenderness General Extremity: Negative for edema Neuro oriented x3 and CN's II-XII intact bilaterally Sensorium / Orientation: alert; Negative for orientation impaired, lethargic or stuporous Motor Exam: strength 5/5 throughout Psych mental status grossly normal Appearance: Negative for unkempt Attitude: No agitated Mood & Affect: anxious; Negative for depressed or tearful Skin no rashes or lesions noted, no wounds and skin turgor normal General Skin Exam: elasticity normal; Negative for jaundice or pallor Lesions: No lesion noted Rashes: No rashes noted Trauma: Negative for abrasion Wounds: Negative for wounds noted MDM MDM MDM Narrative Medical decision making narrative: 37-year-old female complaining of not feeling well for months. Her exam is benign. There is nothing abnormal. I think is secondary to anxiety. She had a recent evaluation including CAT scans and labs other than a possible UTI was unremarkable. She will be discharged home with outpatient work-up. History & Record Review Discussion w/independent historian: Patient Discharge Plan Triage Chief Complaint: General Illness ED Provider: Francisco Javier Watson Dx/Rx/DC Orders Clinical Impression: Anxiety Instructions: ED Anxiety Reaction Prescriptions: No Action nitrofurantoin monohyd/m-cryst 100 mg capsule 100 mg PO Q12H Patient Comments: TAKE 1 CAPSULE ORALLY EVERY 12 HOURS WITH A MEAL/FOOD SWALLOW WHOLE DO NOT OPEN/CRUSH/DISSOLVE/CHEW ondansetron [ondansetron] 4 mg tablet,disintegrating 4 mg PO Q8H PRN PRN (Reason: Nausea) Qty: 10 0RF polyethylene glycol 3350 [Laxative PEG 3350] 17 gram/dose powder 17 g PO .qd-bid PRN (Reason: constipation) Qty: 119 0RF Primary Care Provider: Care Physician,No Primary Referrals: Braulio Shrama MD [Non-Staff] - As soon as possible Care Physician,No Primary [Primary Care Provider] - Activity Restrictions/Additional Instructions: Completely normal exam tonight. I reviewed your labs from your last visit. Th ey can do further outpatient testing to follow-up with primary care physician. Disposition Disposition: Home, Self Care
[2023-05-01 20:40] VITALS: RESP 16
== END 2023-05-01 20:49 | disposition home or self-care (01) ==
PROVIDERS: Emergency Provider Emergency Medicine; Visit Provider Emergency Medicine
DX: F41.9 Anxiety disorder, unspecified (principal); R11.2 Nausea with vomiting, unspecified; R19.7 Diarrhea, unspecified; F17.290 Nicotine dependence, other tobacco product, uncomplicated
CPT/HCPCS: 99282

== ENCOUNTER 2023-05-06 00:39 | Emergency (ER) | payer MEDICAID, SELFPAY ==
[2023-05-06 00:40] VITALS: BP 132/88; PULSE 85; RESP 20; TEMP 36.3; O2SAT 97; BMI 31.5
[2023-05-06 01:40] LABS: Mucous, Urine 0 SEEN /hpf (<or=2+); Red Blood Cells-Urine 0 SEEN /hpf (0-5)
[2023-05-06 01:41] LABS: Color, Urine Yellow (Yellow); Glucose, Dipstick Normal (Normal); Ketone-Dipstick Negative (Negative); Leukocyte Esterase-Dipstick 25 /ul (Negative); Nitrite-Dipstick Negative (Negative); Occult Blood-Urine Negative /ul (Negative); Protein-Dipstick 15 mg/dl (Negative); Specific Gravity, Urine 1.015 (1.002-1.030); Urine Bilirubin Dipstick Negative (Negative); Urine Clarity Clear (Clear); Urine Urobilinogen Normal (Normal)
[2023-05-06 01:47] LABS: Absolute Neutrophil Count 4.2 X10^3/uL (2.0-7.7); Basophil# 0.04 X10^3/uL; Basophil% 0.4 % (0-1); Eosinophil# 0.93 X10^3/uL; Eosinophils% 10.2 % (0-5); Hematocrit 38.4 % (37-47); Hemoglobin 12.5 g/dL (12.0-15.0); Lymphocyte % 34.1 % (19-41); Mean Corp Hgb Conc 32.6 g/dL (32-36); Mean Corpuscular Hgb 29.8 pg (27.0-32.0); Mean Corpuscular Volume 91.6 fL (81-99); Mean Platelet Vol. 11.4 fl (6.2-12.0); Monocyte# 0.74 X10^3/uL; Monocyte% 8.1 % (0-10); NRBC Flagged by Analyzer 0 % (0-5); Neutrophil # 4.24 X10^3/uL (2.7-7.7); Neutrophil % 46.9 % (47-70); Platelet Count 291 K/mm3 (150-450); RBC Distribution Width CV 14.1 % (11.6-14.6); RBC Distribution Width SD 47.5 fl (35.1-43.9); Red Blood Count 4.19 M/mm3 (4.2-5.4); White Blood Count 9.1 K/mm3 (4.4-11.0)
[2023-05-06 02:01] LABS: Anion Gap 4 (5-15); BUN 9 mg/dL (7-18); BUN/Creat Ratio 11.3 RATIO (10-20); Calcium,Total 9.3 mg/dL (8.5-10.1); Chloride 108 mmol/L (98-107); EST Glomerular Filtration Rate 86 mL/min (>60); Est Glom Filt Rate - Afr Amer 105 mL/min (>60); Estimated Creatinine Clearance 83.95 ml/min; Glucose 134 mg/dL (74-106); Potassium 3.8 mmol/L (3.5-5.1); Sodium Level 141 mmol/L (136-145)
[2023-05-06 02:06] LABS: Internal QC Validated? YES +Cl - CLEAR BKGD
[2023-05-06 02:07] LABS: Pregnancy, Serum, hCG Quali. NEGATIVE Negative
[2023-05-06 02:13] LABS: Squamous Epithelial Cells - UA 5-10 SEEN /hpf (5-10); White Blood Cells 0-5 SEEN /hpf (0-5)
[2023-05-06 02:14] LABS: Amorphous Sediment 2+; Bacteria 2+ /hpf (None Seen)
--- NOTE | 2023-05-06 02:37 | EDS_ITS ---
HPI History of Present Illness Chief Complaint: General Illness Narrative Narrative: 37-year-old female presenting with multiple complaints. She states that she feels like she is anxious, she has been crying. She has intermittent abdominal pains. She complains of dysuria. She complains of intermittent headaches, fevers and chills, nausea. She has Zofran which helps with the nausea. Patient has been seen in the ER several times and had several negative work-ups. She has not followed up with anybody on an outpatient basis because they state to her that she has to be on a wait list. Since she has to be on a wait list she opted not to get on any list. She is going to see her primary care physician that she previously had in [employer] in the next couple of weeks. She states other than she has no medical problems. She does have a history of fentanyl abuse but is not stating that she has actively used this currently. PFSH PFS Home Medications omeprazole 20 mg capsule,delayed release 20 mg PO DAILY 05/06/23 [History Last Taken Unknown] Allergy/AdvReac Type Severity Reaction Status Date / Time [facility] [[facility]] Allergy Hives Verified 05/06/23 00:43 Penicillins Allergy Hives Verified 05/06/23 00:43 Social History Smoking Status: Current every day smoker tobacco type: e-cigarettes ROS ROS ED Constitutional Constitutional ED: Reports chills and fever(s); Denies sweats Eyes Eyes: Reports blurry vision and change in vision ENT ENT ED: Reports sore throat; Denies ear pain Cardiovascular Cardiovascular: Reports palpitations; Denies chest pain or racing heartbeat Respiratory/Chest Respiratory/Chest: Denies cough, dyspnea or sputum Gastrointestinal Gastrointestinal: Reports abdominal pain, nausea and vomiting; Denies constipation or diarrhea Genitourinary Genitourinary ED: Reports dysuria and urinary frequency; Denies hematuria Musculoskeletal Musculoskeletal: Reports myalgias; Denies arthralgias or neck pain Integumentary Denies abscess, Abrasions or rash Neurologic Neurologic: Reports headache(s); Denies paresthesias or weakness Psychiatric Psychiatric: Reports anxiety; Denies depression, suicidal ideation or suicidal thoughts Endocrine Endocrinology: Denies polydipsia or polyuria EXAM Physical Exam Const Vital Signs: 05/06/23 00:40 05/06/23 00:46 Temperature 97.4 F L Temperature Source Temporal Pulse Rate 85 Respiratory Rate 20 H Respiratory Effort Normal Respiratory Pattern Normal Blood Pressure 132/88 H Blood Pressure Mean 102 Pulse Ox 97 Oxygen Delivery Method Room Air Positive well nourished General Appearance ED: NAD HEENT Reports moist mucous membranes Eyes PERRL and EOMs intact bilaterally Chest Wall inspection of chest normal Resp normal respiratory effort and clear to auscultation bilaterally Auscultation: Negative for rales, rhonchi or wheezes GI normal to inspection, nondistended, normoactive bowel sounds Back/Spine no CVA tenderness Neuro oriented x3 and CN's II-XII intact bilaterally Sensorium / Orientation: alert Psych Mood & Affect: anxious and tearful Skin no rashes or lesions noted and no wounds MDM MDM MDM Narrative Medical decision making narrative: Patient presenting with multiple complaints. Her physical exam is pretty unremarkable. Her vital signs are stable and she is afebrile procedure very tearful. Differential includes UTI, pyelonephritis, , depression, anxiety, drug abuse. I did check a CBC to assess white blood cell count, hemoglobin, platelets. BMP to assess renal function, electrolytes. hCG to assess for . Urinalysis to assess for infection. Urine drug screen to assess for drug abuse. Ultimately CBC and BMP are unremarkable. Urinalysis negative for infection. hCG is negative. Urine drug screen is positive for cocaine and cannabinoids. I went back to evaluate the patient as she was requested a TSH be drawn and she states that she wants to go home at this point. Her TSH returned is normal at 0.8. Patient to return precautions. Impression: 1. Cocaine abuse 2. Anxiety 3. Nausea 4. Body aches Lab Data Labs: Laboratory Results - last 24 hr 05/06/23 05/06/23 01:30 01:43 WBC 9.1 RBC 4.19 L Hgb 12.5 Hct 38.4 MCV 91.6 MCH 29.8 MCHC 32.6 RDW Std Deviation 47.5 H RDW Coeff of Malina 14.1 Plt Count 291 MPV 11.4 Immature Gran % (Auto) 0.300 Neut % (Auto) 46.9 L Lymph % (Auto) 34.1 [place] % (Auto) 8.1 Eos % (Auto) 10.2 H Baso % (Auto) 0.4 Absolute Neuts (auto) 4.2 Absolute Lymphs (auto) 3.10 Nucleated RBC % 0 Sodium 141 Potassium 3.8 Chloride 108 H Carbon Dioxide 29.0 Anion Gap 4 L BUN 9 Creatinine 0.80 Estim Creat Clear Calc 83.95 Est GFR (MDRD) Af Amer 105 Est GFR (MDRD) Non-Af 86 BUN/Creatinine Ratio 11.3 Glucose 134 H Calcium 9.3 TSH 0.80 Serum , Qual NEGATIVE Urine Color Yellow Urine Clarity Clear Urine pH 7.0 Ur Specific Vaughn 1.015 Urine Protein 15 H Urine Glucose (UA) Normal Urine Ketones Negative Urine Occult Blood Negative Urine Nitrite Negative Urine Bilirubin Negative Urine Urobilinogen Normal Ur Leukocyte Esterase 25 H Urine RBC 0 SEEN Urine WBC 0-5 SEEN Ur Squamous Epith Cells 5-10 SEEN Amorphous Sediment 2+ Urine Bacteria 2+ Urine Mucus 0 SEEN Urine Opiates Screen NEGATIVE Urine Methadone Screen NEGATIVE Ur Barbiturates Screen NEGATIVE Ur Phencyclidine Scrn NEGATIVE Ur Amphetamines Screen NEGATIVE MDMA (Ecstasy) Screen NEGATIVE U Benzodiazepines Scrn NEGATIVE Urine Cocaine Screen POSITIVE H U Cannabinoids Screen POSITIVE H Ur Drug Screen Comment Discharge Plan Triage Chief Complaint: General Illness ED Provider: Chau Pratt Dx/Rx/DC Orders Prescriptions: No Action omeprazole 20 mg capsule,delayed release(DR/EC) 20 mg PO DAILY Primary Care Provider: Care Physician,No Primary Referrals: Care Physician,No Primary [Primary Care Provider] -
[2023-05-06 03:07] LABS: Amphetamine Urine VISTA NEGATIVE (<1000 ng/mL); Barbiturate Urine VISTA NEGATIVE (< 200 ng/mL); Benzodiazepine Urine VISTA NEGATIVE (< 200 ng/mL); Cocaine Urine VISTA POSITIVE (< 300 ng/mL); Ecstacy Urine VISTA NEGATIVE (< 500 ng/mL); Methadone Urine VISTA NEGATIVE (< 300 ng/mL); PCP Urine VISTA NEGATIVE (< 25 ng/mL); THC Urine VISTA POSITIVE (< 50 ng/mL); Vista UDS pH Range 6
== END 2023-05-06 03:31 | disposition home or self-care (01) ==
PROVIDERS: Emergency Provider Student in an Organized Health Care Education/Training Program; Visit Provider Student in an Organized Health Care Education/Training Program
DX: F14.10 Cocaine abuse, uncomplicated (principal); F41.9 Anxiety disorder, unspecified; R30.0 Dysuria; R10.9 Unspecified abdominal pain; R51.9 Headache, unspecified; J02.9 Acute pharyngitis, unspecified; R11.2 Nausea with vomiting, unspecified; M79.10 Myalgia, unspecified site; F17.290 Nicotine dependence, other tobacco product, uncomplicated; Z79.899 Other long term (current) drug therapy
CPT/HCPCS: 80048; 80307; 81001; 84443; 84703; 85025; 99283; A4216

== ENCOUNTER 2023-05-22 01:56 | Emergency (ER) | payer MEDICAID, SELFPAY ==
[2023-05-22 01:58] VITALS: BP 136/75; PULSE 54; RESP 18; TEMP 36.8; O2SAT 96; BMI 33.0
[2023-05-22 02:29] LABS: Bedside Glucose 87 mg/dL (74-106)
--- NOTE | 2023-05-22 02:41 | EX.ED.DYSGE1 ---
HPI History of Present Illness Chief Complaint: Complaint Informant: patient Onset/Context/Timing Onset: Days Context: Gradual Onset Timing: Continuous Quality: Aching, stabbing Location: Bilateral flanks, right worse than left Worsened by: Nothing Relieved by: Laying down Narrative Narrative: Patient presents with right flank pain that has been getting worse over the past couple days. Patient describes it as aching and stabbing. Patient states that sometimes she also feels pain in her left flank. Patient states it is better when she is able to lay down. Patient admits to some nausea but denies any vomiting. Patient admits to some urinary frequency and urinary incontinence. Patient denies any stool incontinence. Patient states she was recently diagnosed with type 2 diabetes but was never started on any medications. PFSH PFSH Home Medications omeprazole 20 mg capsule,delayed release 20 mg PO DAILY 05/06/23 [History Last Taken Unknown] clindamycin HCl 150 mg capsule mg 05/22/23 [History Last Taken Unknown] Allergy/AdvReac Type Severity Reaction Status Date / Time levofloxacin [From Levaquin] Allergy Hives Verified 05/22/23 02:06 Penicillins Allergy Hives Verified 05/22/23 02:06 Surgical History no surgical history no surgical history Social History Smoking Status: Current every day smoker tobacco type: e-cigarettes ROS ROS ED Constitutional Constitutional ED: Reports chills and fever(s) Eyes Eyes: Reports blurry vision; Denies change in vision ENT ENT ED: Reports sore throat; Denies rhinorrhea Cardiovascular Cardiovascular: Denies chest pain or palpitations Respiratory/Chest Respiratory/Chest: Denies cough or dyspnea Gastrointestinal Gastrointestinal: Reports nausea; Denies vomiting Genitourinary Genitourinary ED: Reports urinary frequency; Denies dysuria or hematuria Musculoskeletal Musculoskeletal: Reports back pain and neck pain Integumentary Denies abscess or rash Neurologic Neurologic: Reports headache(s); Denies weakness Allergic/Immunologic Allergic/Immunologic ED: Denies mouth swelling or urticaria EXAM Physical Exam Const Vital Signs: 05/22/23 01:58 Temperature 98.3 F Temperature Source Oral Pulse Rate 54 L Respiratory Rate 18 Blood Pressure 136/75 H Blood Pressure Mean 95 Pulse Ox 96 Oxygen Delivery Method Room Air Positive well nourished and well developed General Appearance ED: well developed and NAD HEENT Reports moist mucous membranes Neck supple and no JVD Resp normal respiratory effort and clear to auscultation bilaterally Cardio regular rate and regular rhythm GI normal to inspection, nondistended, normoactive bowel sounds Palpation: soft and tender LLQ, RLQ and suprapubic; Negative for guarding or rebound tenderness present Back/Spine General Back: CVA tenderness bilateral Extremity normal to inspection General Extremety ED: Negative for edema or tenderness General Extremity: Negative for edema Neuro oriented x3, CN's II-XII intact bilaterally and no sensory deficits noted Sensorium / Orientation: alert Motor Exam: strength 5/5 throughout Psych mental status grossly normal Skin no rashes or lesions noted MDM MDM MDM Narrative Medical decision making narrative: Differential diagnosis includes urinary tract infection, pyelonephritis, ureteral calculus, DKA, gastroenteritis, gastritis, ectopic , acute kidney injury, and electrolyte abnormality. CBC will be obtained to assess for leukocytosis and anemia. Basic metabolic profile will be obtained to assess for electrolyte abnormality and renal function. Serum acetone will be obtained to assess for DKA. Serum hCG will be obtained to assess for . Urinalysis will be obtained to assess for urinary tract infection and hematuria. CT scan of the abdomen pelvis will be obtained to assess for ureteral calculus, bowel obstruction, perforation. Lab Data Attestation: I reviewed the patient's lab results. Lab results narrative: CBC was reviewed and was within normal limits. Comprehensive metabolic profile was reviewed and was within normal limits. Urinalysis was reviewed. There is no evidence of urinary tract infection or hematuria. Serum acetone level was reviewed and was negative. Serum hCG was reviewed and was negative. Labs: Laboratory Results - last 24 hr 05/22/23 05/22/23 05/22/23 02:04 02:50 03:00 WBC 9.4 RBC 4.70 Hgb 13.9 Hct 43.0 MCV 91.5 MCH 29.6 MCHC 32.3 RDW Std Deviation 48.3 H RDW Coeff of Malina 14.3 Plt Count 318 MPV 11.3 Immature Gran % (Auto) 0.300 Neut % (Auto) 54.6 Lymph % (Auto) 32.7 [place] % (Auto) 6.5 Eos % (Auto) 5.5 H Baso % (Auto) 0.4 Absolute Neuts (auto) 5.1 Absolute Lymphs (auto) 3.06 Nucleated RBC % 0 Sodium 142 Potassium 4.1 Chloride 107 Carbon Dioxide 27.0 Anion Gap 8 BUN 9 Creatinine 0.68 Estim Creat Clear Calc 97.81 Est GFR (MDRD) Af Amer 126 Est GFR (MDRD) Non-Af 104 BUN/Creatinine Ratio 13.3 Glucose 96 Calcium 9.1 Total Bilirubin 0.30 AST 25 ALT 29 Alkaline Phosphatase 54 Troponin I High Sens 4 Total Protein 7.3 Albumin 3.7 Globulin 3.6 Albumin/Globulin Ratio 1.0 Serum , Qual NEGATIVE Urine Color Yellow Urine Clarity Clear Urine pH 6.0 Ur Specific [place] 1.020 Urine Protein 15 H Urine Glucose (UA) Normal Urine Ketones Negative Urine Occult Blood 10 H Urine Nitrite Negative Urine Bilirubin Negative Urine Urobilinogen Normal Ur Leukocyte Esterase Negative Urine RBC 0 SEEN Urine WBC 0 SEEN Ur Squamous Epith Cells 0 SEEN Urine Bacteria 0 SEEN Urine Mucus 0 SEEN Acetone Level NEGATIVE POC Glucose 87 Radiography Diagnostic Testing: Clinical Impression(s) from Imaging Studies Abdomen/Pelvis CT 05/22/23 02:48 IMPRESSION: Negative CT abdomen and pelvis without oral or IV contrast. No hydronephrosis or nephrolithiasis. Electronically Signed: Akash Montero MD at 3:46 EDT , Chest X-Ray 05/22/23 03:28 IMPRESSION: No acute pulmonary finding. Electronically Signed: Akash Montero MD at 3:53 EDT , PA and lateral chest x-ray was obtained. There are 2 views. On my independent interpretation, lung hall are clear. There is normal cardiac silhouette. Bony thorax is normal. There is no acute process noted. Radiologist also interpreted the x-ray and agrees. CT scan of the abdomen pelvis was obtained. There is no evidence of bowel obstruction, perforation, hydronephrosis, or nephrolithiasis. There is no free air or free fluid. This was interpreted by the radiologist and was also independently reviewed by myself. Treatment and Re-Evaluation :: Patient was advised of her findings. Patient was instructed to follow-up with her primary care physician in 5 to 7 days. Patient was instructed return if worse in any way. Patient understood and was agreeable with the plan. All questions were answered. Discharge Plan Triage Chief Complaint: Complaint ED Provider: Rafael Cervantes Dx/Rx/DC Orders Clinical Impression: Urinary frequency, Bilateral flank pain Instructions: ED Flank Pain, Uncertain Cause Prescriptions: No Action omeprazole 20 mg capsule,delayed release(DR/EC) 20 mg PO DAILY clindamycin HCl 150 mg capsule Patient Comments: take 3 capsules by mouth three times a day for 5 days Primary Care Provider: Care Physician,No Primary Referrals: Care Physician,No Primary [Primary Care Provider] - Doctor,Your [Non-Staff] - 5-7 Days Disposition Disposition: Home, Self Care
--- NOTE | 2023-05-22 02:48 | CT_ITS ---
INDICATION: Bilateral flank pain EXAMINATION: CT ABDOMEN AND PELVIS WITHOUT CONTRAST - CT Abdomen And Pelvis W/O Contrast Injection TECHNIQUE: Helically acquired images were obtained of the abdomen and pelvis without oral or IV contrast. A radiation dose optimization technique was used for this scan. IV Contrast dosage and agent: None. Oral contrast: None. RADIATION DOSAGE (If Supplied By Facility): CTDIvol = ( 11.78 ) mGy, DLP = ( 570.86 ) mGycm COMPARISON: No relevant prior comparison study available FINDINGS: LOWER CHEST: Lung bases are clear. No cardiomegaly or pericardial effusion. LIVER: Homogeneous. No focal mass. GALLBLADDER AND BILIARY TREE: No calcified gallstones. No gallbladder distension or wall edema. No intra- or extrahepatic biliary ductal dilation. PANCREAS: No focal cystic or solid mass. SPLEEN: Normal size without focal cystic or solid mass. ADRENAL GLANDS: No nodules. KIDNEYS AND URETERS: Normal renal size and position. No hydronephrosis. PERITONEUM: No ascites or free air. No other fluid collection. BOWEL: No evidence of acute appendicitis. No stomach or bowel distension. No focal inflammatory change. LYMPH NODES: No enlarged mesenteric or retroperitoneal lymph nodes. VESSELS: Aorta is non-dilated. URINARY BLADDER: Unremarkable. REPRODUCTIVE ORGANS: No pelvic masses. Tampon in place. ABDOMINAL WALL: No discrete abdominal or pelvic wall hernia. BONES: No lytic or blastic abnormality. CT/Abdomen/Pelvis without Cont IMPRESSION: Negative CT abdomen and pelvis without oral or IV contrast. No hydronephrosis or nephrolithiasis. Electronically Signed: Akash Montero MD at 3:46 EDT ,
[2023-05-22 03:04] LABS: Bacteria 0 SEEN /hpf (None Seen); Mucous, Urine 0 SEEN /hpf (<or=2+); Red Blood Cells-Urine 0 SEEN /hpf (0-5); Squamous Epithelial Cells - UA 0 SEEN /hpf (5-10); White Blood Cells 0 SEEN /hpf (0-5)
[2023-05-22 03:15] LABS: Color, Urine Yellow (Yellow); Glucose, Dipstick Normal (Normal); Ketone-Dipstick Negative (Negative); Leukocyte Esterase-Dipstick Negative /ul (Negative); Nitrite-Dipstick Negative (Negative); Occult Blood-Urine 10 /ul (Negative); Protein-Dipstick 15 mg/dl (Negative); Urine Bilirubin Dipstick Negative (Negative); Urine Clarity Clear (Clear); Urine Urobilinogen Normal (Normal)
[2023-05-22 03:19] LABS: Internal QC Validated? YES +Cl - CLEAR BKGD; Pregnancy, Serum, hCG Quali. NEGATIVE Negative
--- NOTE | 2023-05-22 03:28 | RAD_ITS ---
INDICATION: Pain -- -- right flank pain, CP, dizziness EXAMINATION/TECHNIQUE: X-RAY - XR Chest 2 Views COMPARISON: Prior study dated: CT 03/25/2023 FINDINGS: LINES/DEVICES: None. LUNGS: The lungs are well expanded. No consolidation, edema or effusion. No pneumothorax. MEDIASTINUM AND CARDIOVASCULAR STRUCTURES: Cardiac silhouette not enlarged. Central airways and mediastinal contour are unremarkable. BONES AND SOFT TISSUES: Unremarkable. RAD/Chest PA and Lateral IMPRESSION: No acute pulmonary finding. Electronically Signed: Akash Montero MD at 3:53 EDT ,
[2023-05-22 03:43] LABS: Albumin, Serum 3.7 g/dL (3.2-5.0); BUN 9 mg/dL (7-18); BUN/Creat Ratio 13.3 RATIO (10-20); Creatinine, Serum 0.68 mg/dL (0.55-1.02); EST Glomerular Filtration Rate 104 mL/min (>60); Est Glom Filt Rate - Afr Amer 126 mL/min (>60); Estimated Creatinine Clearance 97.81 ml/min; Glucose 96 mg/dL (74-106); Protein, Total 7.3 g/dL (6.4-8.2)
[2023-05-22 03:44] LABS: AST(SGOT) 25 U/L (15-37); Alanine Aminotransfer ALT/SGPT 29 U/L (13-56); Alkaline Phosphatase 54 U/L (45-117); Calcium,Total 9.1 mg/dL (8.5-10.1); Chloride 107 mmol/L (98-107); Globulin 3.6 g/dL (2.2-4.2); Potassium 4.1 mmol/L (3.5-5.1); Sodium Level 142 mmol/L (136-145)
[2023-05-22 04:01] LABS: Absolute Lymphocyte Count 3.06 X10^3/uL (0.83-4.51); Absolute Neutrophil Count 5.1 X10^3/uL (2.0-7.7); Anion Gap 8 (5-15); Basophil# 0.04 X10^3/uL; Basophil% 0.4 % (0-1); Eosinophil# 0.51 X10^3/uL; Eosinophils% 5.5 % (0-5); Hemoglobin 13.9 g/dL (12.0-15.0); Lymphocyte # 3.06 X10^3/ul (0.83-4.51); Lymphocyte % 32.7 % (19-41); Mean Corp Hgb Conc 32.3 g/dL (32-36); Mean Corpuscular Hgb 29.6 pg (27.0-32.0); Mean Corpuscular Volume 91.5 fL (81-99); Mean Platelet Vol. 11.3 fl (6.2-12.0); Monocyte# 0.61 X10^3/uL; Monocyte% 6.5 % (0-10); NRBC Flagged by Analyzer 0 % (0-5); Neutrophil % 54.6 % (47-70); Platelet Count 318 K/mm3 (150-450); RBC Distribution Width CV 14.3 % (11.6-14.6); RBC Distribution Width SD 48.3 fl (35.1-43.9); White Blood Count 9.4 K/mm3 (4.4-11.0)
[2023-05-22 04:14] LABS: Troponin-I HS 4 pg/mL (3.0-54.0)
[2023-05-22 04:33] VITALS: BP 103/64; PULSE 94; RESP 16; O2SAT 100
== END 2023-05-22 04:45 | disposition home or self-care (01) ==
PROVIDERS: Emergency Provider Emergency Medicine; Visit Provider Emergency Medicine
DX: R35.0 Frequency of micturition (principal); R10.31 Right lower quadrant pain; R10.32 Left lower quadrant pain; F17.290 Nicotine dependence, other tobacco product, uncomplicated
CPT/HCPCS: 71046; 74176; 80048; 80053; 81001; 82009; 82962; 84484; 84703; 85025; 99282; A4216

== ENCOUNTER 2023-06-05 10:29 | Emergency (ER) | payer MEDICAID, SELFPAY ==
[2023-06-05 10:31] VITALS: BP 124/78; PULSE 84; RESP 16; TEMP 36.2; O2SAT 100
--- NOTE | 2023-06-05 10:47 | EDS_ITS ---
HPI History of Present Illness Chief Complaint: Palpitations Detail of Chief Complaint: Palpitations, diaphoresis, anxiety Informant: patient Narrative Narrative: Patient presents to the emergency department with complaint of not feeling well after using on illicit substance. Patient states that she uses fentanyl daily. Typically she snorts it and does not inject. Patient used a small amount about an hour ago of what she thought was fentanyl and then started feeling anxious and jittery and feeling like her heart was racing. Patient feels sweaty and feels like something is wrong. She has a friend who used the same thing and who did not feel this way. PFSH PFSH Home Medications omeprazole 20 mg capsule,delayed release 20 mg PO DAILY 05/06/23 [History Last Taken Unknown] clindamycin HCl 150 mg capsule mg 05/22/23 [History Last Taken Unknown] Allergy/AdvReac Type Severity Reaction Status Date / Time levofloxacin [From Levaquin] Allergy Hives Verified 06/05/23 10:57 Penicillins Allergy Hives Verified 06/05/23 10:57 Social History Smoking Status: Current every day smoker tobacco type: e-cigarettes ROS ROS ED Review of Systems ROS Unobtainable: other Constitutional Constitutional ED: Reports lethargy; Denies chills, fever(s), sweats or weight loss Eyes Eyes: Denies blurry vision, change in vision or diplopia ENT ENT ED: Denies rhinorrhea or sore throat Cardiovascular Cardiovascular: Reports palpitations and racing heartbeat; Denies chest pain or orthopnea Respiratory/Chest Respiratory/Chest: Denies cough, dyspnea, dyspnea on exertion, orthopnea or sputum Gastrointestinal Gastrointestinal: Reports nausea; Denies abdominal pain, diarrhea or vomiting Genitourinary Genitourinary ED: Denies dysuria, hematuria or urinary frequency Musculoskeletal Musculoskeletal: Denies arthralgias, back pain, myalgias or neck pain Integumentary Denies abscess, Abrasions or rash Neurologic Neurologic: Denies headache(s) or weakness Psychiatric Psychiatric: Reports anxiety; Denies depression or suicidal thoughts Endocrine Endocrinology: Denies polydipsia, polyphagia or polyuria Hematologic/Lymphatic Hematologic/Lymphatic: Denies easy bleeding, easy bruising or lymphadenopathy Allergic/Immunologic Allergic/Immunologic ED: Denies mouth swelling, tongue swelling or urticaria EXAM Physical Exam Const Vital Signs: 06/05/23 10:31 06/05/23 11:07 06/05/23 12:14 Temperature 97.1 F L Temperature Source Temporal Pulse Rate 84 62 Respiratory Rate 16 16 Respiratory Effort Normal Non-Labored Blood Pressure 124/78 H 131/76 H Blood Pressure Mean 93 94 Pulse Ox 100 99 Oxygen Delivery Method Room Air 06/05/23 12:41 Temperature Temperature Source Pulse Rate 68 Respiratory Rate 16 Respiratory Effort Blood Pressure 144/93 H Blood Pressure Mean Pulse Ox Oxygen Delivery Method Positive well nourished and well developed General Appearance ED: well developed and NAD HEENT Reports TM's clear and moist mucous membranes normocephalic and atraumatic; Negative for trauma or tenderness Tympanic Membrane ED: Yes TM's clear Eyes PERRL and EOMs intact bilaterally General Eye ED: Negative for pale conjunctiva or scleral icterus Neck no lymphadenopathy, supple and no JVD General: Negative for tenderness Chest Wall inspection of chest normal and palpation of chest normal Chest: Negative for tenderness Resp normal respiratory effort and clear to auscultation bilaterally Effort and Inspection: Negative for respiratory distress or pain with movement Auscultation: Negative for rhonchi, wheezes or diminished lung sounds Cardio regular rate, regular rhythm, S1 normal heart sound, S2 normal heart sound and no murmurs Peripheral Pulses: pulses 2+ throughout GI normal to inspection, nondistended, normoactive bowel sounds, soft to palpation, non-tender, non-distended and no masses Back/Spine no CVA tenderness and no thoracic nor lumbar tenderness Extremity normal to inspection General Extremety ED: Negative for edema General Extremity: Negative for edema Neuro oriented x3, CN's II-XII intact bilaterally, no sensory deficits noted and gait normal Sensorium / Orientation: awake, alert, oriented to person, oriented to place and oriented to time Motor Exam: strength 5/5 throughout and strength abnormal Psych mental status grossly normal Skin no rashes or lesions noted and no wounds MDM MDM MDM Narrative Medical decision making narrative: Patient presents with complaint of not feeling well after ingesting a substance that she thought was fentanyl by snorting. Clinically appeared anxious. We did start an IV and gave her a gram of Ativan IV and she felt markedly improved and her symptoms mostly resolved. CBC with differential was unremarkable. Chemistries unremarkable. hCG was negative. Toxicology screen positive for THC. Alcohol was negative. I offered the patient admission for detox from opiates but she would like to try to do this as an outpatient and does not want to be admitted. This point it is unclear what she ingested. Patient also with history of anxiety. Advised her to follow-up with 180. Lab Data Attestation: I reviewed the patient's lab results. Labs: Laboratory Results - last 24 hr 06/05/23 06/05/23 06/05/23 11:26 11:40 11:57 WBC 11.5 H RBC 4.54 Hgb 13.8 Hct 41.9 MCV 92.3 MCH 30.4 MCHC 32.9 RDW Std Deviation 46.4 H RDW Coeff of Malina 13.7 Plt Count 319 MPV 11.5 Immature Gran % (Auto) 0.400 Neut % (Auto) 73.8 H Lymph % (Auto) 19.4 [place] % (Auto) 5.1 Eos % (Auto) 0.9 Baso % (Auto) 0.4 Absolute Neuts (auto) 8.5 H Absolute Lymphs (auto) 2.23 Nucleated RBC % 0 Sodium 140 Potassium 4.0 Chloride 108 H Carbon Dioxide 24.0 Anion Gap 8 BUN 19 H Creatinine 0.71 Est GFR (MDRD) Af Amer 120 Est GFR (MDRD) Non-Af 99 BUN/Creatinine Ratio 26.9 H Glucose 121 H Calcium 9.0 Serum , Qual NEGATIVE Urine Opiates Screen NEGATIVE Urine Methadone Screen NEGATIVE Ur Barbiturates Screen NEGATIVE Ur Phencyclidine Scrn NEGATIVE Ur Amphetamines Screen NEGATIVE MDMA (Ecstasy) Screen NEGATIVE U Benzodiazepines Scrn NEGATIVE Urine Cocaine Screen NEGATIVE U Cannabinoids Screen POSITIVE H Ur Drug Screen Comment Ethyl Alcohol < 3.0 EKG Initial EKG: Attestation: I personally reviewed and interpreted this EKG as follows: Comments: Sinus rhythm with a rate of 75 bpm with no acute ST segment changes Discharge Plan Triage Chief Complaint: Palpitations ED Provider: Sylvia Boyle Dx/Rx/DC Orders Clinical Impression: Illicit drug use, Opiate abuse, continuous Instructions: Treating Drug Abuse and Addiction, ED Drug Abuse Prescriptions: No Action omeprazole 20 mg capsule,delayed release(DR/EC) 20 mg PO DAILY clindamycin HCl 150 mg capsule Patient Comments: take 3 capsules by mouth three times a day for 5 days Primary Care Provider: Care Physician,No Primary Referrals: Care Physician,No Primary [Primary Care Provider] - [facility] [Non-Staff] - As soon as possible Disposition Disposition: Home, Self Care Discharge Date/Time: 06/05/23 12:42
--- NOTE | 2023-06-05 10:47 | EKG12_ITS ---
Test Reason : PALP Blood Pressure : / mmHG Vent. Rate : 075 BPM Atrial Rate : 075 BPM P-R Int : 154 ms QRS Dur : 084 ms QT Int : 370 ms P-R-T Axes : 029 -13 008 degrees QTc Int : 413 ms Normal sinus rhythm Normal ECG When compared with ECG of 13-APR-2023 05:06, No significant change was found Confirmed by RAUL MARQUEZ, PIPPA ([id number]), state editor KAREN DAWN ([id number]) on 06/07/2023 9:52:07 AM Referred By: AMAURY Confirmed By:CHAD CARTER MD
[2023-06-05] MEDS: 0.9% Normal Saline (1000mL) 1,000 ML 150 ML IV (11:08)
[2023-06-05] MEDS: LORazepam 2 MG/ML Syringe 1 MG IV (11:08)
--- NOTE | 2023-06-05 11:10 | ED.RN ---
UNABLE TO OBTAIN BLOOD DRAW FROM IV, WILL HAVE LAB DRAW
[2023-06-05 11:42] LABS: Absolute Lymphocyte Count 2.23 X10^3/uL (0.83-4.51); Absolute Neutrophil Count 8.5 X10^3/uL (2.0-7.7); Basophil# 0.05 X10^3/uL; Basophil% 0.4 % (0-1); Eosinophils% 0.9 % (0-5); Hematocrit 41.9 % (37-47); Hemoglobin 13.8 g/dL (12.0-15.0); Lymphocyte # 2.23 X10^3/ul (0.83-4.51); Lymphocyte % 19.4 % (19-41); Mean Corp Hgb Conc 32.9 g/dL (32-36); Mean Corpuscular Hgb 30.4 pg (27.0-32.0); Mean Corpuscular Volume 92.3 fL (81-99); Mean Platelet Vol. 11.5 fl (6.2-12.0); Monocyte# 0.59 X10^3/uL; Monocyte% 5.1 % (0-10); NRBC Flagged by Analyzer 0 % (0-5); Neutrophil # 8.46 X10^3/uL (2.7-7.7); Neutrophil % 73.8 % (47-70); Platelet Count 319 K/mm3 (150-450); RBC Distribution Width CV 13.7 % (11.6-14.6); RBC Distribution Width SD 46.4 fl (35.1-43.9); Red Blood Count 4.54 M/mm3 (4.2-5.4); White Blood Count 11.5 K/mm3 (4.4-11.0)
[2023-06-05 11:53] LABS: Internal QC Validated? YES +Cl - CLEAR BKGD; Pregnancy, Serum, hCG Quali. NEGATIVE Negative
[2023-06-05 12:02] LABS: Anion Gap 8 (5-15); BUN 19 mg/dL (7-18); BUN/Creat Ratio 26.9 RATIO (10-20); Chloride 108 mmol/L (98-107); Creatinine, Serum 0.71 mg/dL (0.55-1.02); EST Glomerular Filtration Rate 99 mL/min (>60); Est Glom Filt Rate - Afr Amer 120 mL/min (>60); Glucose 121 mg/dL (74-106); Sodium Level 140 mmol/L (136-145)
[2023-06-05 12:07] LABS: Alcohol, Blood (Medical)-Serum < 3.0 mg/dL
[2023-06-05 12:14] VITALS: BP 131/76; PULSE 62; RESP 16; O2SAT 99
[2023-06-05 12:19] LABS: Amphetamine Urine VISTA NEGATIVE (<1000 ng/mL); Barbiturate Urine VISTA NEGATIVE (< 200 ng/mL); Benzodiazepine Urine VISTA NEGATIVE (< 200 ng/mL); Cocaine Urine VISTA NEGATIVE (< 300 ng/mL); Ecstacy Urine VISTA NEGATIVE (< 500 ng/mL); Methadone Urine VISTA NEGATIVE (< 300 ng/mL); PCP Urine VISTA NEGATIVE (< 25 ng/mL); THC Urine VISTA POSITIVE (< 50 ng/mL); Vista UDS pH Range 5
[2023-06-05 12:41] VITALS: BP 144/93; PULSE 68; RESP 16
== END 2023-06-05 12:42 | disposition home or self-care (01) ==
PROVIDERS: Emergency Provider Emergency Medicine; Visit Provider Emergency Medicine
DX: F11.10 Opioid abuse, uncomplicated (principal); F41.9 Anxiety disorder, unspecified; F17.290 Nicotine dependence, other tobacco product, uncomplicated; R61 Generalized hyperhidrosis; R00.2 Palpitations
CPT/HCPCS: 36415; 80048; 80307; 82077; 84703; 85025; 93005; 96361; 96374; 99283; J7030; A4216

== ENCOUNTER 2023-09-18 01:31 | Emergency (ER) | payer MEDICAID, SELFPAY ==
[2023-09-18 01:32] VITALS: BP 145/87; PULSE 85; RESP 20; TEMP 36.6; O2SAT 99; BMI 31.0
--- OUTSIDE RECORDS SUMMARY | 2023-09-18 02:00 | XMS RPT_ITS | CCD ---
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 1985 Unknown [id number] 1985 Unknown [id number] 1986 Unknown [id number] 1986 Unknown [id number] 1986 Unknown [id number] 1986 Unknown [id number] 1986 Unknown [id number] 1959 Medicaid [id number] Self-pay [id number] Unknown [id number] Unknown [id number] Unknown [id number] Unknown [id number] Unknown [id number] Social History Date Type Detail Facility Start: 04-09-2022 End: 07-15-2022 Tobacco smoking status [facility] Current some day smoker [facility] Start: 1985 Sex Assigned At Female F [facility] Start: 03-17-2023 [facility] Start: 05-15-2023 Tobacco smoking stat [facility] Never smoked tobacco [facility] Start: 05-15-2023 End: 05-30-2023 Tobacco use and exposure Smokeless tobacco non-user [facility] Start: 05-15-2023 End: 05-30-2023 History of Social function [facility] Start: 05-15-2023 End: 05-30-2023 Tobacco use panel [facility] Start: 1985 Sex Assigned At Not on file C [facility] Start: 05-30-2023 [facility] of tobacco use [facility] Start: 05-30-2023 End: 07-24-2023 Alcohol intake Current drinker of alcohol (finding) [facility] Adult Depression Screening Assessment 2 [facility] Start: 05-30-2023 Tobacco Comment [facility]ape [facility] Start: 05-30-2023 Alcohol Comment Rare [facility] Medical Equipment Procedure Code Equipment Code Equipment Origin al Text Equipment Identifier Dates Start: 05-30-2023 Clinical Notes 03-11-2022 to 09-06-2023 Christin Vázquez APRN.[facility] - 07/24/2023 7:36 PM ESTTelephone Encounter - Eula Goyal - 06/27/2023 11:41 AM EDTPatient HenryHildaDeloresraina Kaplan APRN.CNP - 05/30/2023 10:46 AM EDT Note Date & Type Note Facility 09-06-2023 Note HNO ID: [id number] Author: Christin Vázquez APRN.[facility] Service: ? Author Type: Nurse Practitioner Type: Progress Notes Filed: 09/06/2023 7:57 PM Note Text: This note was created using Wine[employer]Nowriter. Subjective Hayde Malhotra is a 38 year old female. 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 Denies abdominal pain Denies N/V/D Denies fever LMP-just started this AM, endorses that she just started this AM The history is provided by the patient. 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 UTI This is a new problem. The current episode started 2 days ago. The problem occurs every urination. The problem has not changed since onset.The quality of the pain is described as burning. The pain is at a severity of 5/10. The pain is mild. There has been no fever. She is Sexually active. Associated symptoms include nausea, frequency and urgency. Pertinent negatives include no chills, no sweats, no vomiting, no discharge, no hematuria, no hesitancy, no possible and no flank pain. She has tried nothing for the symptoms. Her past medical history does not include kidney stones, single kidney, urological procedure, recurrent UTIs, urinary stasis or catheterization. PAST MEDICAL HISTORY Diagnosis Date Generalized anxiety disorder Type 2 diabetes (HCC) No past surgical history on file. ALLERGIES Levofloxacin and Penicillins MEDICATIONS blood sugar diagnostic (BLOOD GLUCOSE TEST) test strip 1 Strip daily before breakfast. Use as instructed Lancets lancets 1 Each daily before breakfast. Use as instructed omeprazole (PRILOSEC) 20 mg capsule Take 20 mg by mouth once daily. sulfamethoxazole-trimethoprim (BACTRIM DS) 800-160 mg per tablet Take 1 tablet by mouth two times a day for 5 days. ondansetron orally disintegrating (ZOFRAN ODT) 4 mg disintegrating tablet Take 1 tablet by mouth every 8 hours as needed for nausea/vomiting. ondansetron orally disintegrating (ZOFRAN ODT) 4 mg disintegrating tablet Take 1 tablet by mouth every 6 hours as needed for nausea/vomiting. (Patient not taking: Reported on 09/06/2023) hydrOXYzine pamoate (VISTARIL) 25 mg capsule Take 1 capsule by mouth three times daily as needed. (Patient not taking: Reported on 09/06/2023) No family history on file. Social History Tobacco Use Smoking status: Former Types: Cigarettes Smokeless tobacco: Never Tobacco comments: Vape Vaping Use Vaping Use: current everyday user Substance Use Topics Alcohol use: Yes Comment: Rare Drug use: Never Review of Systems Constitutional: Negative for chills, fatigue and fever. Eyes: Negative for discharge and itching. Respiratory: Negative for apnea, cough, choking and chest tightness. Cardiovascular: Negative for chest pain, palpitations and leg swelling. Gastrointestinal: Positive for nausea. Negative for vomiting. Genitourinary: Positive for dysuria, frequency and urgency. Negative for flank pain, hematuria and hesitancy. Musculoskeletal: Positive for back pain. Skin: Negative for color change, pallor, rash and wound. Allergic/Immunologic: Negative for environmental allergies, food allergies and immunocompromised state. Neurological: Negative for dizziness, facial asymmetry, light-headedness and headaches. Hematological: Negative for adenopathy. Does not bruise/bleed easily. Psychiatric/Behavioral: Negative for agitation and behavioral problems. Objective BP 128/82 Pulse 72 Temp 36.7 ?C (98.1 ?F) (Tympanic) Resp 18 Wt 82.6 kg (182 lb) LMP 04/03/2023 (Within Days) BMI 31.24 kg/m? Physical Exam Vitals and nursing note reviewed. Constitutional: General: She is not in acute distress. Appearance: Normal appearance. She is normal weight. She is not ill-appearing, toxic-appearing or diaphoretic. HENT: Head: Normocephalic and atraumatic. Right Ear: Ear canal and external ear normal. Left Ear: Ear canal and external ear normal. Nose: Nose normal. No congestion or rhinorrhea. Mouth/Throat: Mouth: Mucous membranes are moist. Pharynx: No oropharyngeal exudate or posterior oropharyngeal erythema. Eyes: General: Right eye: No discharge. Left eye: No discharge. Extraocular Movements: Extraocular movements intact. Conjunctiva/sclera: Conjunctivae normal. Pupils: Pupils are equal, round, and reactive to light. Cardiovascular: Rate and Rhythm: Normal rate and regular rhythm. Pulses: Normal pulses. Heart sounds: Normal heart sounds. No murmur heard. No friction rub. Pulmonary: Effort: Pulmonary effort is normal. No respiratory distress. Breath sounds: Normal breath sounds. No stridor. No wheezing, rhonchi or rales. Chest: Chest wall: No tenderness. Abdominal: General: Abdomen is flat. There is no distension. Palpations: Abdomen is soft. There is no mass. Tenderness: There (more content not included)... [facility] 07-24-2023 Note HNO ID: [id number] Author: Christin Vázquez APRN.PERSONAL BANKER Service: ? Author Type: Nurse Practitioner Type: Progress Notes Filed: 07/24/2023 7:47 PM Note Text: This note was created using [employer]. Subjective Hayde Malhotra is a 38 year old female. 38 year old female with no PMH presents for female complaints. Acute onset yesterday Endorses she has noted x 1 eruption in vaginal area OF note she endorses history of same in past States over the past several days she has experienced Body aches, fatigue, Nausea +hot flashes This is how it always starts Denies fever or chills Denies Denies vaginal bleeding Denies vaginal discharge Just need put on the medicine that starts with a V Patient also requesting Zofran for her nausea The history is provided by the patient. 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 Female Gu Problem This is a recurrent problem. The current episode started yesterday. The onset was sudden. The problem occurs continuously. The problem has been unchanged. The patient is experiencing no pain. Nothing relieves the symptoms. Nothing aggravates the symptoms. Associated symptoms include nausea and rash. Pertinent negatives include no chest pain, no anorexia, no chills, no fever, no abdominal pain, no diarrhea, no vomiting, no dysuria, no frequency, no hematuria, no urgency, no vaginal bleeding, no vaginal discharge, no vaginal pain, no headaches, no sore throat, no back pain, no cough and no shortness of breath. Urine output has been normal. The last void occurred Less than 6 hours ago. She is not . Past medical history comments: history of genital herpes. There were no sick contacts. She has received no recent medical care. PAST MEDICAL HISTORY Diagnosis Date Generalized anxiety disorder Type 2 diabetes (HCC) No past surgical history on file. ALLERGIES Levofloxacin and Penicillins MEDICATIONS hydrOXYzine pamoate (VISTARIL) 25 mg capsule Take 1 capsule by mouth three times daily as needed. blood sugar diagnostic (BLOOD GLUCOSE TEST) test strip 1 Strip daily before breakfast. Use as instructed Lancets lancets 1 Each daily before breakfast. Use as instructed omeprazole (PRILOSEC) 20 mg capsule Take 20 mg by mouth once daily. valACYclovir (VALTREX) 1 gram Take 1 tablet by mouth once daily for 5 days. ondansetron orally disintegrating (ZOFRAN ODT) 4 mg disintegrating tablet Take 1 tablet by mouth every 6 hours as needed for nausea/vomiting. No family history on file. Social History Tobacco Use Smoking status: Former Types: Cigarettes Smokeless tobacco: Never Tobacco comments: Vape Vaping Use Vaping Use: current everyday user Substance Use Topics Alcohol use: Yes Comment: Rare Drug use: Never Review of Systems Constitutional: Negative for chills and fever. HENT: Negative for sore throat. Respiratory: Negative for cough and shortness of breath. Cardiovascular: Negative for chest pain. Gastrointestinal: Positive for nausea. Negative for abdominal pain, anorexia, diarrhea and vomiting. Genitourinary: Negative for dysuria, frequency, hematuria, urgency, vaginal bleeding, vaginal discharge and vaginal pain. Musculoskeletal: Negative for back pain and gait problem. Skin: Positive for rash. Neurological: Negative for headaches. Hematological: Negative for adenopathy. Does not bruise/bleed easily. Psychiatric/Behavioral: Negative for agitation and behavioral problems. Objective BP 110/72 Pulse 82 Temp 36.2 ?C (97.2 ?F) Resp 16 Wt 84.4 kg (186 lb) LMP 04/03/2023 (Within Days) SpO2 98% BMI 31.93 kg/m? Physical Exam Vitals and nursing note reviewed. Constitutional: General: She is not in acute distress. Appearance: Normal appearance. She is normal weight. She is not ill-appearing, toxic-appearing or diaphoretic. HENT: Head: Normocephalic and atraumatic. Right Ear: Ear canal and external ear normal. Left Ear: Ear canal and external ear normal. Nose: Nose normal. No congestion or rhinorrhea. Mouth/Throat: Mouth: Mucous membranes are moist. Pharynx: No oropharyngeal exudate or posterior oropharyngeal erythema. Eyes: General: Right eye: No discharge. Left eye: No discharge. Extraocular Movements: Extraocular movements intact. Conjunctiva/sclera: Conjunctivae normal. Pupils: Pupils are equal, round, and reactive to light. Cardiovascular: Rate and Rhythm: Normal rate and regular rhythm. Pulses: Normal pulses. Heart sounds: Normal heart sounds. No murmur heard. No friction rub. Pulmonary: Effort: Pulmonary effort is normal. No respiratory distress. Breath sounds: Normal breath sounds. No stridor. No wheezing, rhonchi or rales. Chest: Chest wall: No tenderness. Abdominal: General: Abdomen is flat. There is no distension. Palpations: Abdomen is soft. There is no mass. Tenderness: There is no abdominal tenderness. There is no right CVA tenderness, left CVA tendernes (more content not included)... [facility] 07-24-2023 History of Presen t illness Narrative This note was created using Wine[employer]Nowriter. Subjective Hayde Malhotra is a 38 year old female. 38 year old female with no PMH presents for female complaints. Acute onset yesterday Endorses she has noted x 1 eruption in vaginal area OF note she endorses history of same in past States over the past several days she has experienced Body aches, fatigue, Nausea +hot flashes This is how it always starts Denies fever or chills Denies Denies vaginal bleeding Denies vaginal discharge Just need put on the medicine that starts with a V Patient also requesting Zofran for her nausea The history is provided by the patient. 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 Female Gu Problem This is a recurrent problem. The current episode started yesterday. The onset was sudden. The problem occurs continuously. The problem has been unchanged. The patient is experiencing no pain. Nothing relieves the symptoms. Nothing aggravates the symptoms. Associated symptoms include nausea and rash. Pertinent negatives include no chest pain, no anorexia, no chills, no fever, no abdominal pain, no diarrhea, no vomiting, no dysuria, no frequency, no hematuria, no urgency, no vaginal bleeding, no vaginal discharge, no vaginal pain, no headaches, no sore throat, no back pain, no cough and no shortness of breath. Urine output has been normal. The last void occurred Less than 6 hours ago. She is not . Past medical history comments: history of genital herpes. There were no sick contacts. She has received no recent medical care. PAST MEDICAL HISTORY Diagnosis Date Generalized anxiety disorder Type 2 diabetes (HCC) No past surgical history on file. ALLERGIES Levofloxacin and Penicillins MEDICATIONS hydrOXYzine pamoate (VISTARIL) 25 mg capsule Take 1 capsule by mouth three times daily as needed. blood sugar diagnostic (BLOOD GLUCOSE TEST) test strip 1 Strip daily before breakfast. Use as instructed Lancets lancets 1 Each daily before breakfast. Use as instructed omeprazole (PRILOSEC) 20 mg capsule Take 20 mg by mouth once daily. valACYclovir (VALTREX) 1 gram Take 1 tablet by mouth once daily for 5 days. ondansetron orally disintegrating (ZOFRAN ODT) 4 mg disintegrating tablet Take 1 tablet by mouth every 6 hours as needed for nausea/vomiting. No family history on file. Social History Tobacco Use Smoking status: Former Types: Cigarettes Smokeless tobacco: Never Tobacco comments: Vape Vaping Use Vaping Use: current everyday user Substance Use Topics Alcohol use: Yes Comment: Rare Drug use: Never Review of Systems Constitutional: Negative for chills and fever. HENT: Negative for sore throat. Respiratory: Negative for cough and shortness of breath. Cardiovascular: Negative for chest pain. Gastrointestinal: Positive for nausea. Negative for abdominal pain, anorexia, diarrhea and vomiting. Genitourinary: Negative for dysuria, frequency, hematuria, urgency, vaginal bleeding, vaginal discharge and vaginal pain. Musculoskeletal: Negative for back pain and gait problem. Skin: Positive for rash. Neurological: Negative for headaches. Hematological: Negative for adenopathy. Does not bruise/bleed easily. Psychiatric/Behavioral: Negative for agitation and behavioral problems. Objective BP 110/72 Pulse 82 Temp 36.2 C (97.2 F) Resp 16 Wt 84.4 kg (186 lb) LMP 04/03/2023 (Within Days) SpO2 98% BMI 31.93 kg/m Physical Exam Vitals and nursing note reviewed. Constitutional: General: She is not in acute distress. Appearance: Normal appearance. She is normal weight. She is not ill-appearing, toxic-appearing or diaphoretic. HENT: Head: Normocephalic and atraumatic. Right Ear: Ear canal and external ear normal. Left Ear: Ear canal and external ear normal. Nose: Nose normal. No congestion or rhinorrhea. Mouth/Throat: Mouth: Mucous membranes are moist. Pharynx: No oropharyngeal exudate or posterior oropharyngeal erythema. Eyes: General: Right eye: No discharge. Left eye: No discharge. Extraocular Movements: Extraocular movements intact. Conjunctiva/sclera: Conjunctivae normal. Pupils: Pupils are equal, round, and reactive to light. Cardiovascular: Rate and Rhythm: Normal rate and regular rhythm. Pulses: Normal pulses. Heart sounds: Normal heart sounds. No murmur heard. No friction rub. Pulmonary: Effort: Pulmonary effort is normal. No respiratory distress. Breath sounds: Normal breath sounds. No stridor. No wheezing, rhonchi or rales. Chest: Chest wall: No tenderness. Abdominal: General: Abdomen is flat. There is no distension. Palpations: Abdomen is soft. There is no mass. Tenderness: There is no abdominal tenderness. There is no right CVA tenderness, left CVA tenderness, guarding or rebound. Hernia: No hernia is present. Genitourinary: Comments: Declines Musculoskeletal: General: No swelling, tenderness, deformity or signs of injury. Normal range of motion. Cervical back: Normal range of motion and neck supple. No rigidity. Right lower leg: No edema. Left lower leg: No edema. Lymphadenopathy: Cervical: No cervical adenopathy. Skin: General: Skin is warm and dry. Coloration: Skin is not jaundiced or pale. Findings: No bruising, erythema, lesion or rash. Neurological: General: No focal deficit present. Mental Status: She is alert and oriented to person, place, and time. Cranial Nerves: No cranial nerve deficit. Sensory: No sensory deficit. Motor: No weakness. Coordination: Coordination normal. Gait: Gait normal. Psychiatric: Mood and Affect: Mood normal. Behavior: Behavior normal. Thought Content: Thought content normal. Judgment: Judgment normal. Assessment and Plan ASSESSMENT/PLAN: 1. Genital herpes simplex, unspecified site - ICD9: 054.10, ICD10: A60.00 Eruption occurred yesterday History of same Declines examination RX Valtrex FOllow up with PCP Christin Vázquez APRN.CNP documented in this encounter [facility] 06-27-2023 Miscellaneous Notes No Show Documentation Hayde Malhotra no showed for an appointment on 06/27/2023 with Jessica Stevens APRN.CNP at 10:20. She was scheduled for 4 week follow up. I called and and left message to call and reschedule on VM No show determined to be fault of patient: Yes This is the patients first no show in the last 12 months. Patient was rescheduled for . Letter mailed : Yes Is this the Third or Fourth No Show ? No Eula Goyal June 27, 2023 11:41 AM documented in this encounter [facility] 05-30-2023 Note HNO ID: [id number] Author: Jessica Stevens APRN.CNP Service: ? Author Type: Nurse Practitioner Type: Progress Notes Filed: 05/30/2023 3:00 PM Note Text: [facility] Jessica Stevens APRN-PERSONAL BANKER [address] [place] [address] Dept Dept. Visit Date: May 30, 2023 Ms.Krista Shannen Malhotra Date of : 1985 MRN/E #: [id number] Chief Complaint: Patient presents with: Establish Care Diabetes: Was dx 2 weeks ago History of Present Illness Hayde Malhotra is a 38 year old female here today to establish care as a new patient and to discuss a new diagnosis of diabetes and multiple other concerns. I reviewed past medical, surgical, social, and family histories today and updated chart. Allergies, chronic medications, and supplements were also reviewed. PMH of bipolar, anxiety, panic attacks, GERD. Her is present with her today. They recently moved to the [facility]. Originally from [place] and had a provider there tell her she was diabetic about two weeks ago but was not started on any treatment. Has been trying to do some research on what she should be eating but is overwhelmed. Was recently [facility] an [facility] for possible TMJ and was started on Prednisone but by the time she went to pick it up her symptoms improved. Has been having severe feet pain for the last 4 weeks Painful with walking or being on her feet for long periods of time but can be very painful when she first wakes up and goes to walk Improved some since cutting back on her sugar intake Cloudy and blurry vision recently Worsened quickly Having severe headaches that come on suddenly for the last week ago 3 days ago started having numbness, pain, tingling, and swelling in her hands when she wakes up Has been having crippling panic attacks Waking her up in her sleep Sweating Crying a lot Can't sleep for than 2 hours Impending sense of doom Has been on Celexa, Prozac, Paxil, Wellbutrin, Zoloft, Abilify, Lamictal in the past Was on Seroquel in the past, helped with her anxiety and sleeping Was also on Ativan in the past but hasn't had for over 2 years Feels a lump on the right side of her neck for the last few weeks Radiates into the right side of her throat Trouble swallowing but not choking The history is provided by the patient. 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 PAST MEDICAL HISTORY Diagnosis Date Generalized anxiety disorder Type 2 diabetes (HCC) History reviewed. No pertinent surgical history. Social History Tobacco Use Smoking status: Former Types: Cigarettes Smokeless tobacco: Never Tobacco comments: Vape Vaping Use Vaping Use: current everyday user Substance Use Topics Alcohol use: Yes Comment: Rare Drug use: Never Social History Social History Narrative Not on file No family history on file. ALLERGIES Allergen Reactions Levofloxacin Unknown Penicillins Unknown Current Outpatient Medications Medication Sig predniSONE (DELTASONE) 20 mg tablet Take 2 tablets by mouth once daily for 5 days. omeprazole (PRILOSEC) 20 mg capsule Take 20 mg by mouth once daily. hydrOXYzine pamoate (VISTARIL) 25 mg capsule Take 1 capsule by mouth three times daily as needed. Blood-Glucose Meter (BLOOD GLUCOSE MONITORING) monitoring kit 1 Each as needed for up to 1 day. Per insurance preference blood sugar diagnostic (BLOOD GLUCOSE TEST) test strip 1 Strip daily before breakfast. Use as instructed Lancets lancets 1 Each daily before breakfast. Use as instructed No current facility-administered medications for this visit. Review of Systems Review of Systems Constitutional: Positive for diaphoresis and fatigue. Negative for appetite change, chills, fever and unexpected weight change. HENT: Positive for sore throat and trouble swallowing. Eyes: Positive for visual disturbance. Respiratory: Positive for shortness of breath. Negative for cough, chest tightness and wheezing. Cardiovascular: Positive for chest pain and palpitations. Negative for leg swelling. Gastrointestinal: Positive for constipation. Negative for abdominal distention, abdominal pain, diarrhea, nausea and vomiting. Endocrine: Positive for polyuria. Genitourinary: Positive for frequency and menstrual problem. Negative for decreased urine volume, dysuria, flank pain, hematuria, urgency and vaginal discharge. Musculoskeletal: Positive for arthralgias, back pain, myalgias and neck pain. Negative for joint swelling. Skin: Negative. Allergic/Immunologic: Negative. Neurological: Positive for dizziness, weakness, light-headedness, numbness and headaches. Negative for tremors, seizures, syncope, facial asymmetry and speech difficulty. Hematological: Negative for adenopathy. Does not bruise/bleed easily. Psychiatric/Behavioral: Positive for dysphoric mood and sleep disturbance. Negative (more content not included)... [facility] 05-30-2023 Instructions Jessica Stevens APRN.CNP - 05/30/2023 10:55 AM EDT Craft Demonstrator- [facility] location [phone] Dr Wong Lombardi- Ophthalmology [facility] [address] [address] Appointment: Desk:[phone] Melanie Penn CNP- Psychiatry [address] [address] Appointment:[phone] documented in this encounter [facility] 05-30-2023 History of Presen t illness Narrative Images from the original note were not included. [facility] Jessica Stevens STOCK P[employer]ERSONAL [employer]ER [address] [place] [address] Dept Dept. Visit Date: May 30, 2023 Ms.Krista Shannen Malhotra Date of : 1985 MRN/E #: [id number] Chief Complaint: Patient presents with: Establish Care Diabetes: Was dx 2 weeks ago History of Present Illness Hayde Malhotra is a 38 year old female here today to establish care as a new patient and to discuss a new diagnosis of diabetes and multiple other concerns. I reviewed past medical, surgical, social, and family histories today and updated chart. Allergies, chronic medications, and supplements were also reviewed. PMH of bipolar, anxiety, panic attacks, GERD. Her is present with her today. They recently moved to the [facility]. Originally from [place] and had a provider there tell her she was diabetic about two weeks ago but was not started on any treatment. Has been trying to do some research on what she should be eating but is overwhelmed. Was recently [facility] in an [facility] for possible TMJ and was started on Prednisone but by the time she went to pick it up her symptoms improved. Has been having severe feet pain for the last 4 weeks Painful with walking or being on her feet for long periods of time but can be very painful when she first wakes up and goes to walk Improved some since cutting back on her sugar intake Cloudy and blurry vision recently Worsened quickly Having severe headaches that come on suddenly for the last week ago 3 days ago started having numbness, pain, tingling, and swelling in her hands when she wakes up Has been having crippling panic attacks Waking her up in her sleep Sweating Crying a lot Can't sleep for than 2 hours Impending sense of doom Has been on Celexa, Prozac, Paxil, Wellbutrin, Zoloft, Abilify, Lamictal in the past Was on Seroquel in the past, helped with her anxiety and sleeping Was also on Ativan in the past but hasn't had for over 2 years Feels a lump on the right side of her neck for the last few weeks Radiates into the right side of her throat Trouble swallowing but not choking The history is provided by the patient. 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 PAST MEDICAL HISTORY Diagnosis Date Generalized anxiety disorder Type 2 diabetes (HCC) History reviewed. No pertinent surgical history. Social History Tobacco Use Smoking status: Former Types: Cigarettes Smokeless tobacco: Never Tobacco comments: Vape Vaping Use Vaping Use: current everyday user Substance Use Topics Alcohol use: Yes Comment: Rare Drug use: Never Social History Social History Narrative Not on file No family history on file. ALLERGIES Allergen Reactions Levofloxacin Unknown Penicillins Unknown Current Outpatient Medications Medication Sig predniSONE (DELTASONE) 20 mg tablet Take 2 tablets by mouth once daily for 5 days. omeprazole (PRILOSEC) 20 mg capsule Take 20 mg by mouth once daily. hydrOXYzine pamoate (VISTARIL) 25 mg capsule Take 1 capsule by mouth three times daily as needed. Blood-Glucose Meter (BLOOD GLUCOSE MONITORING) monitoring kit 1 Each as needed for up to 1 day. Per insurance preference blood sugar diagnostic (BLOOD GLUCOSE TEST) test strip 1 Strip daily before breakfast. Use as instructed Lancets lancets 1 Each daily before breakfast. Use as instructed No current facility-administered medications for this visit. Review of Systems Review of Systems Constitutional: Positive for diaphoresis and fatigue. Negative for appetite change, chills, fever and unexpected weight change. HENT: Positive for sore throat and trouble swallowing. Eyes: Positive for visual disturbance. Respiratory: Positive for shortness of breath. Negative for cough, chest tightness and wheezing. Cardiovascular: Positive for chest pain and palpitations. Negative for leg swelling. Gastrointestinal: Positive for constipation. Negative for abdominal distention, abdominal pain, diarrhea, nausea and vomiting. Endocrine: Positive for polyuria. Genitourinary: Positive for frequency and menstrual problem. Negative for decreased urine volume, dysuria, flank pain, hematuria, urgency and vaginal discharge. Musculoskeletal: Positive for arthralgias, back pain, myalgias and neck pain. Negative for joint swelling. Skin: Negative. Allergic/Immunologic: Negative. Neurological: Positive for dizziness, weakness, light-headedness, numbness and headaches. Negative for tremors, seizures, syncope, facial asymmetry and speech difficulty. Hematological: Negative for adenopathy. Does not bruise/bleed easily. Psychiatric/Behavioral: Positive for dysphoric mood and sleep disturbance. Negative for agitation, confusion, hallucinations, self-injury and suicidal ideas. The patient is nervous/anxious. Vital Signs BP 120/76 Pulse 62 Temp 98 Resp 18 Ht 5' 4 (1.63m) Wt 187 lb (84.8kg) SpO2 100% LMP 04/03/2023 BMI 32.08 kg/(m^2). Physical Exam Vitals and nursing note reviewed. Constitutional: Appearance: She is overweight. HENT: Head: Normocephalic. Jaw: No trismus or tenderness. Right Ear: Tympanic membrane, ear canal and external ear normal. Tenderness present. Left Ear: Tympanic membrane, ear canal and external ear normal. Tenderness present. Nose: Nose normal. Mouth/Throat: Lips: [place]. Mouth: Mucous membranes are moist. Tongue: No lesions. Pharynx: Oropharynx is clear. Uvula midline. No pharyngeal swelling or posterior oropharyngeal erythema. Tonsils: No tonsillar exudate. Eyes: General: Vision grossly intact. Extraocular Movements: Extraocular movements intact. Conjunctiva/sclera: Conjunctivae normal. Pupils: Pupils are equal, round, and reactive to light. Neck: Thyroid: No thyromegaly. Cardiovascular: Rate and Rhythm: Normal rate and regular rhythm. Pulses: Normal pulses. Heart sounds: Normal heart sounds, S1 normal and S2 normal. Pulmonary: Effort: Pulmonary effort is normal. Breath sounds: Normal breath sounds and air entry. Chest: Chest wall: Tenderness present. Abdominal: Palpations: Abdomen is soft. There is no hepatomegaly or splenomegaly. Tenderness: There is no abdominal tenderness. Musculoskeletal: Cervical back: Normal range of motion and neck supple. Tenderness present. Right lower leg: No edema. Left lower leg: No edema. Right foot: Tenderness present. No swelling. Left foot: Tenderness present. No swelling. Lymphadenopathy: Head: Right side of head: No submental, submandibular or tonsillar adenopathy. Cervical: No cervical adenopathy. Right cervical: No superficial, deep or posterior cervical adenopathy. Skin: General: Skin is warm and dry. Findings: No rash. Neurological: Mental Status: She is alert and oriented to person, place, and time. Cranial Nerves: Cranial nerves 2-12 are intact. Sensory: Sensation is intact. Gait: Gait is intact. Psychiatric: Attention and Perception: Attention normal. Mood and Affect: Mood is anxious. Affect is tearful. Speech: Speech normal. Behavior: Behavior is cooperative. Thought Content: Thought content normal. Cognition and Memory: Cognition normal. Visit Diagnoses (E11.9) New onset type 2 diabetes mellitus (HCC) (primary encounter diagnosis) (H53.9) Vision changes (R51.9) Increased severity of headaches (F31.9) Bipolar affective disorder, remission status unspecified (HCC) (F41.9) Anxiety (F41.0) Panic attacks (G47.9) Difficulty sleeping (K21.9) Gastroesophageal reflux disease, unspecified whether esophagitis present (Z13.31) Screening for depression (Z76.89) Encounter to establish care Assessment and Plan 1. New onset type 2 diabetes mellitus (HCC) - ICD9: 250.00, ICD10: E11.9 (primary diagnosis) - New diagnosis per previous provider. Records are not available at time of visit. Will request records to review but will place lab orders in case we do not receive the results. - Blood glucose monitoring on a once daily before breakfast - Referral to Nutrition - Ophthalmology/optometry for diabetic eye exam - Counseled on healthy diet and regular exercise - Discussed diabetic education issues of diabetes complications and monitoring required and hypoglycemic/hyperglycemic symptoms - Follow up in 4 weeks, sooner should any other issues arise. - CONSULT TO NUTRITION THERAPY - HGB A1C - COMP METABOLIC PANEL - LIPID PANEL BASIC - CONSULT TO OPHTHALMOLOGY - BLOOD-GLUCOSE METER KIT - BLOOD GLUCOSE TEST STRIPS - LANCETS 2. Vision changes - ICD9: 368.9, ICD10: H53.9 - Patient reports a rapid decline in her vision including cloudiness and blurriness. No curtain - CT BRAIN WO IVCON 3. Increased severity of headaches - ICD9: 784.0, ICD10: R51.9 - She has had intractable headaches for the last week that come on suddenly. - CT BRAIN WO IVCON 4. Bipolar affective disorder, remission status unspecified (HCC) - ICD9: 296.80, ICD10: F31.9 - CONSULT TO PSYCHIATRY 5. Anxiety - ICD9: 300.00, ICD10: F41.9 - HYDROXYZINE PAMOATE 25 MG CAPSULE - TSH BLD - CONSULT TO PSYCHIATRY 6. Panic attacks - ICD9: 300.01, ICD10: F41.0 - CONSULT TO PSYCHIATRY 7. Difficulty sleeping - ICD9: 780.50, ICD10: G47.9 - CONSULT TO PSYCHIATRY 8. Gastroesophageal reflux disease, unspecified whether esophagitis present - ICD9: 530.81, ICD10: K21.9 - Discussed lifestyle modifications including losing weight, limiting caffeine, no meals three hours before sleep, and head of bed elevation - Continue treatment with Prilosec 20 mg QD 9. Screening for depression - ICD9: V79.0, ICD10: Z13.31 - Already diagnosed, refer to psychiatry - DEPRESSION SCREENING/ASSESSMENT 10. Encounter to establish care - ICD9: V65.8, ICD10: Z76.89 - Request previous records to review Discussed above plan with patient and and they are agreeable with above plan. Follow up visit Return for needs [place] for glucose check educaiton once she has her supplies, 4 week F/U with me. Jessica Stevens APRN.JORGE ALBERTO, signed on May 30, 2023 10:46 AM documented in this encounter [facility] 05-27-2023 Note HNO ID: [id number] Author: Lauryn Lisa PA-C Service: ? Author Type: Physician Logistics Lead Type: Progress Notes Filed: 05/27/2023 1:44 PM Note Text: This note was created using [employer]. Subjective Hayde Malhotra is a 38 year old female. HPI Patient presents with a chief complaint of right jaw pain. She states she has pain and hears a clicking noise when she opens her jaw. Radiates into her zoroastrianism and ear area. Does not know laying on the past couple of days. She states she has been chewing more on the right side because she had an infection on the left side of her mouth and was on clindamycin. She follows up with her dentist this next week. Patient also having some pain in the right trapezius area that radiates down her arm. She is she could have woke up with this. She denies any injury or trauma. Has some pain when she lifts the arm above the head. Review of Systems Constitutional: Negative. HENT: Positive for dental problem and ear pain. Negative for congestion. Right jaw pain Respiratory: Negative. Cardiovascular: Negative. Gastrointestinal: Negative. Musculoskeletal: Right arm pain All other systems reviewed and are negative. No past medical history on file. Current Outpatient Medications Medication Sig Dispense Refill hydrOXYzine pamoate (VISTARIL) 25 mg capsule TAKE 1 CAPSULE BY MOUTH AT BEDTIME NEEDED FOR 30 DAYS omeprazole (PRILOSEC) 20 mg capsule Take 20 mg by mouth once daily. predniSONE (DELTASONE) 20 mg tablet Take 2 tablets by mouth once daily for 5 days. 10 tablet 0 LORazepam (ATIVAN) 2 mg tab Take 2 mg by mouth. (Patient not taking: Reported on 05/15/2023) No current facility-administered medications for this visit. No past surgical history on file. No family history on file. Social History Tobacco Use Smoking status: Never Smokeless tobacco: Never Objective BP 122/80 Pulse 98 Temp 36.5 ?C (97.7 ?F) Resp 18 Wt 85.3 kg (188 lb) LMP 04/03/2023 (Within Days) SpO2 99% Physical Exam Vitals reviewed. Constitutional: Appearance: Normal appearance. HENT: Head: Normocephalic and atraumatic. Comments: Has tenderness to palpation on the right TMJ. Pain with opening closing the jaw. Exam of the mouth reveals no obvious infection of the teeth. No overlying facial swelling. Right Ear: Tympanic membrane, ear canal and external ear normal. Left Ear: Tympanic membrane, ear canal and external ear normal. Nose: Nose normal. Mouth/Throat: Mouth: Mucous membranes are moist. Pharynx: Oropharynx is clear. Cardiovascular: Rate and Rhythm: Normal rate and regular rhythm. Heart sounds: Normal heart sounds. Pulmonary: Breath sounds: Normal breath sounds. Musculoskeletal: Comments: Patient tender on palpation of the right trapezius diffusely. No obvious redness or swelling. Full range of motion of the shoulder with some pain lifting it way above her head. Radial pulse 2+. Normal strength in the arms bilaterally. No significant increased pain with flexion and extension of the neck. No midline cervical tenderness. Neurological: Mental Status: She is alert. Assessment and Plan ASSESSMENT/PLAN: 1. TMJ dysfunction - ICD9: 524.60, ICD10: M26.609 (primary diagnosis) We will treat with prednisone. Discussed soft foods. She has follow-up with PCP in 2 days. 2. Right arm pain - ICD9: 729.5, ICD10: M79.601 Likely had slept wrong on that arm. Seems to be muscular pain. Prednisone will help with this as well. Lauryn Lisa PA-C [facility] 05-27-2023 History of Presen t illness Narrative This note was created using [employer]. Subjective Hayde Malhotra is a 38 year old female. HPI Patient presents with a chief complaint of right jaw pain. She states she has pain and hears a clicking noise when she opens her jaw. Radiates into her zoroastrianism and ear area. Does not know laying on the past couple of days. She states she has been chewing more on the right side because she had an infection on the left side of her mouth and was on clindamycin. She follows up with her dentist this next week. Patient also having some pain in the right trapezius area that radiates down her arm. She is she could have woke up with this. She denies any injury or trauma. Has some pain when she lifts the arm above the head. Review of Systems Constitutional: Negative. HENT: Positive for dental problem and ear pain. Negative for congestion. Right jaw pain Respiratory: Negative. Cardiovascular: Negative. Gastrointestinal: Negative. Musculoskeletal: Right arm pain All other systems reviewed and are negative. No past medical history on file. Current Outpatient Medications Medication Sig Dispense Refill hydrOXYzine pamoate (VISTARIL) 25 mg capsule TAKE 1 CAPSULE BY MOUTH AT BEDTIME NEEDED FOR 30 DAYS omeprazole (PRILOSEC) 20 mg capsule Take 20 mg by mouth once daily. predniSONE (DELTASONE) 20 mg tablet Take 2 tablets by mouth once daily for 5 days. 10 tablet 0 LORazepam (ATIVAN) 2 mg tab Take 2 mg by mouth. (Patient not taking: Reported on 05/15/2023) No current facility-administered medications for this visit. No past surgical history on file. No family history on file. Social History Tobacco Use Smoking status: Never Smokeless tobacco: Never Objective BP 122/80 Pulse 98 Temp 36.5 C (97.7 F) Resp 18 Wt 85.3 kg (188 lb) LMP 04/03/2023 (Within Days) SpO2 99% Physical Exam Vitals reviewed. Constitutional: Appearance: Normal appearance. HENT: Head: Normocephalic and atraumatic. Comments: Has tenderness to palpation on the right TMJ. Pain with opening closing the jaw. Exam of the mouth reveals no obvious infection of the teeth. No overlying facial swelling. Right Ear: Tympanic membrane, ear canal and external ear normal. Left Ear: Tympanic membrane, ear canal and external ear normal. Nose: Nose normal. Mouth/Throat: Mouth: Mucous membranes are moist. Pharynx: Oropharynx is clear. Cardiovascular: Rate and Rhythm: Normal rate and regular rhythm. Heart sounds: Normal heart sounds. Pulmonary: Breath sounds: Normal breath sounds. Musculoskeletal: Comments: Patient tender on palpation of the right trapezius diffusely. No obvious redness or swelling. Full range of motion of the shoulder with some pain lifting it way above her head. Radial pulse 2+. Normal strength in the arms bilaterally. No significant increased pain with flexion and extension of the neck. No midline cervical tenderness. Neurological: Mental Status: She is alert. Assessment and Plan ASSESSMENT/PLAN: 1. TMJ dysfunction - ICD9: 524.60, ICD10: M26.609 (primary diagnosis) We will treat with prednisone. Discussed soft foods. She has follow-up with PCP in 2 days. 2. Right arm pain - ICD9: 729.5, ICD10: M79.601 Likely had slept wrong on that arm. Seems to be muscular pain. Prednisone will help with this as well. Lauryn Lisa PA-C documented in this encounter [facility] 05-18-2023 Note HNO ID: [id number] Author: Megan Malin APRN.[facility] Service: ? Author Type: Nurse Practitioner Type: Progress Notes Filed: 05/18/2023 3:56 PM Note Text: Subjective Came in with several different complaints. First complaint was patient thought she might have kidney pain. The pain is located in her lower back. Patient also says she thinks she might have a tooth infection she has a cracked tooth. Denies any fever chills. Patient does have nausea. Says she usually has nausea. Patient says she ran out of her Zofran. Patient denies any other symptoms. The history is provided by the patient. 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 Review of Systems Constitutional: Negative. Skin: Negative. Objective Physical Exam Constitutional: Appearance: Normal appearance. HENT: Mouth/Throat: Comments: Patient does have broken tooth in the area marked above. Very mild erythema around area no drainage noted. Pulmonary: Effort: Pulmonary effort is normal. Abdominal: Tenderness: There is no right CVA tenderness or left CVA tenderness. Neurological: Mental Status: She is alert. No past medical history on file. No past surgical history on file. ALLERGIES Levofloxacin and Penicillins MEDICATIONS hydrOXYzine pamoate (VISTARIL) 25 mg capsule TAKE 1 CAPSULE BY MOUTH AT BEDTIME NEEDED FOR 30 DAYS omeprazole (PRILOSEC) 20 mg capsule Take 20 mg by mouth once daily. clindamycin (CLEOCIN) 150 mg capsule Take 3 capsules by mouth three times daily for 5 days. ondansetron orally disintegrating (ZOFRAN ODT) 4 mg disintegrating tablet Take 1 tablet by mouth every 8 hours as needed for nausea/vomiting for up to 5 days. LORazepam (ATIVAN) 2 mg tab Take 2 mg by mouth. (Patient not taking: Reported on 05/15/2023) No family history on file. Social History Tobacco Use Smoking status: Never Smokeless tobacco: Never ASSESSMENT/PLAN: 1. Urinary frequency - ICD9: 788.41, ICD10: R35.0 (primary diagnosis) - UA DIP, URINE (POC) - URINE CULTURE 2. Pain, dental - ICD9: 525.9, ICD10: K08.89 - CLINDAMYCIN HCL 150 MG CAPSULE 3. Nausea - ICD9: 787.02, ICD10: R11.0 - ONDANSETRON 4 MG DISINTEGRATING TABLET Patient was educated about proper use of medication and supportive therapies. Patient was educated to take a probiotic. Patient has a primary care appointment scheduled in a couple weeks. Patient will get established. Patient was okay with this care plan. Megan Malin APRN.[facility] 05-17-2023 Miscellaneous Notes Pt was notified of the results. Pt verbalized understanding. Valerie Bowser MA Please call patient and see if symptoms are improving. If symptoms are not improving patient should return to give another urine specimen due to specimen contamination with normal skin joanna. Chlamydia and gonorrhea are negative. documented in this encounter [facility] 05-16-2023 Miscellaneous Notes Pt notified of results and provider message. Hayde Finney LPN Left message for patient to return call. Martha Corrigan Please let patient know that her Gonorrhea and Chlamydia were both negative. Urine Culture is still in process. F/u if not improving, sooner if worsening symptoms. Farrah Bateman PA-C documented in this encounter [facility] 05-16-2023 Miscellaneous Notes Patient given results and verbalized understanding of instructions given. Martha Corrigan Lab work is starting to result. Negative for francheska and trich. Please advise. Will continue to notify as results return. documented in this encounter [facility] 05-15-2023 Note HNO ID: [id number] Author: Megan Malin APRN.CNP Service: ? Author Type: Nurse Practitioner Type: Progress Notes Filed: 05/15/2023 6:18 PM Note Text: CC: Patient presents with: Urinary Frequency: With nausea and low back pain x5 days HPI Hayde Malhotra is a 38 year old female who presents with complaint of possible UTI. These symptoms have been present for 5 days. Associated symptoms: frequency and backpain Denies: burning, fever, chills, sweats, abdominal pain, and abnormal vaginal discharge Treatments: nothing The ROS was otherwise negative. PMH, Medications, labs, allergies, and recent past visits with PCP were reviewed and updated as able. PHYSICAL EXAM: BP 119/83 Pulse 94 Temp 36.7 ?C (98 ?F) Resp 18 Wt 85.5 kg (188 lb 6.4 oz) LMP 04/03/2023 (Within Days) SpO2 96% General: Well appearing and alert Back: straight and symmetric Abdomen: soft, nontender, nondistended Vaginal exam was completed with data technician. Significant amount of mucousy white discharge. No other abnormal findings. No past medical history on file. No past surgical history on file. ALLERGIES Levofloxacin and Penicillins MEDICATIONS hydrOXYzine pamoate (VISTARIL) 25 mg capsule TAKE 1 CAPSULE BY MOUTH AT BEDTIME NEEDED FOR 30 DAYS ondansetron orally disintegrating (ZOFRAN ODT) 4 mg disintegrating tablet DISSOLVE 1 TABLET BY MOUTH EVERY 8 HOURS NEEDED FOR NAUSEA omeprazole (PRILOSEC) 20 mg capsule Take 20 mg by mouth once daily. LORazepam (ATIVAN) 2 mg tab Take 2 mg by mouth. (Patient not taking: Reported on 05/15/2023) No family history on file. Social History Tobacco Use Smoking status: Never Smokeless tobacco: Never ASSESSMENT/PLAN: 1. Urinary frequency - ICD9: 788.41, ICD10: R35.0 (primary diagnosis) - UA DIP, URINE (POC) - URINE CULTURE 2. Missed menses - ICD9: 626.4, ICD10: N92.6 - HCG QUAL UR B/O - neg - BACTERIAL VAGINOSIS NAAT - FRANCHESKA/TRICHOMONAS NAAT - GONORRHEA/CHLAMYDIA NAAT Medication was prescribed at this time. If anything comes back positive please treat accordingly. Potential red flag symptoms discussed with the patient. Reviewed appropriate action plan to take if red flag symptoms occur. Patient agreeable to treatment plan. Patient will follow-up with PARTS CLERK and get established with PCP. Megan Malin APRN.[facility] 05-15-2023 History of Presen t illness Narrative CC: Patient presents with: Urinary Frequency: With nausea and low back pain x5 days HPI Hayde Malhotra is a 38 year old female who presents with complaint of possible UTI. These symptoms have been present for 5 days. Associated symptoms: frequency and backpain Denies: burning, fever, chills, sweats, abdominal pain, and abnormal vaginal discharge Treatments: nothing The ROS was otherwise negative. PMH, Medications, labs, allergies, and recent past visits with PCP were reviewed and updated as able. PHYSICAL EXAM: BP 119/83 Pulse 94 Temp 36.7 C (98 F) Resp 18 Wt 85.5 kg (188 lb 6.4 oz) LMP 04/03/2023 (Within Days) SpO2 96% General: Well appearing and alert Back: straight and symmetric Abdomen: soft, nontender, nondistended Vaginal exam was completed with data technician. Significant amount of mucousy white discharge. No other abnormal findings. No past medical history on file. No past surgical history on file. ALLERGIES Levofloxacin and Penicillins MEDICATIONS hydrOXYzine pamoate (VISTARIL) 25 mg capsule TAKE 1 CAPSULE BY MOUTH AT BEDTIME NEEDED FOR 30 DAYS ondansetron orally disintegrating (ZOFRAN ODT) 4 mg disintegrating tablet DISSOLVE 1 TABLET BY MOUTH EVERY 8 HOURS NEEDED FOR NAUSEA omeprazole (PRILOSEC) 20 mg capsule Take 20 mg by mouth once daily. LORazepam (ATIVAN) 2 mg tab Take 2 mg by mouth. (Patient not taking: Reported on 05/15/2023) No family history on file. Social History Tobacco Use Smoking status: Never Smokeless tobacco: Never ASSESSMENT/PLAN: 1. Urinary frequency - ICD9: 788.41, ICD10: R35.0 (primary diagnosis) - UA DIP, URINE (POC) - URINE CULTURE 2. Missed menses - ICD9: 626.4, ICD10: N92.6 - HCG QUAL UR B/O - neg - BACTERIAL VAGINOSIS NAAT - FRANCHESKA/TRICHOMONAS NAAT - GONORRHEA/CHLAMYDIA NAAT Medication was prescribed at this time. If anything comes back positive please treat accordingly. Potential red flag symptoms discussed with the patient. Reviewed appropriate action plan to take if red flag symptoms occur. Patient agreeable to treatment plan. Patient will follow-up with PARTS CLERK and get established with PCP. Megan Malin APRN.[facility] documented in this encounter [facility] 05-13-2022 Note PROCEDURE: XR FOOT R T MIN 3 VIEWS HISTORY: Pain in right foot ; follow-up right second toe fracture. COMPARISON: XR foot right 03/30/2022 FINDINGS: BONES:Stable, relatively normal alignment of the second proximal phalanx diaphysis fracture with increasing density of the fracture line and slight callus formation. SOFT TISSUES:No visible soft tissue swelling. EFFUSION:None visible. OTHER: Negative. IMPRESSION: 1. Stable, relatively normal alignment of the second proximal phalanx with ongoing early bone healing. Electronically authenticated by: JOHN GARCIA Date: 2022-05-13 08:28 [facility] 03-30-2022 Note PROCEDURE: XR FOOT R T MIN 3 VIEWS COMPARISON: 03/10/2022 HISTORY: Pain in right foot FINDINGS: BONES:Stable complex extra-articular fracture proximal diaphysis of the second proximal phalanx. Interval sclerosis consistent with healing. No new fracture or dislocation. SOFT TISSUES:Negative. No visible soft tissue swelling. EFFUSION:None visible. OTHER: Negative. IMPRESSION: Stable healing extra-articular fracture of the second proximal phalanx Electronically authenticated by: IVAN CHANG Date: 2022-03-30 19:[address] [facility] 03-11-2022 Note PROCEDURE: XR FOOT R T MIN 3 VIEWS HISTORY: Pain in right foot ; follow-up second toe fracture COMPARISON: XR foot right 02/14/2022 FINDINGS: BONES:Slightly comminuted fracture at the proximal diametaphyseal junction of the second toe proximal phalanx. Minimal displacement of the diaphysis. Slightly displaced separate fragment along the lateral margin. No appreciable callus formation. SOFT TISSUES:Mild soft tissue swelling. EFFUSION:None visible. OTHER: Negative. IMPRESSION: 1. Slightly comminuted and minimally displaced second proximal phalanx fracture. No radiographic evidence of significant early bone healing. Electronically authenticated by: JOHN GARCIA Date: 2022-03-11 06:[address] [facility] Evaluation note No assessment inform ation available [facility] Work Phone: documented in this encounter [facility]* Diagnosis TMJ dysfunction- Primary Temporomandibular joint disorders, unspecified Right arm pain Pain in limb [facility] Diagnosis New onset type 2 diabetes mellitus (HCC)- Primary Vision changes Unspecified visual disturbance Increased severity of headaches Headache Bipolar affective disorder, remission status unspecified (HCC) Anxiety Anxiety state, unspecified Panic attacks Panic disorder without agoraphobia Difficulty sleeping Sleep disturbance, unspecified Gastroesophageal reflux disease, unspecified whether esophagitis present Screening for depression Encounter to establish care Other reasons for seeking consultation [facility] Diagnosis Genital herpes simplex, unspecified site- Primary documented in this encounter [facility] Summary Purpose Family History No Family History Records Found Relationship Condition Age at Onset Recorded Date/T ishaan father Lymphoma Unknown Advance Directives No Advanced Directives Records Found Advance Directive Response Recorded Date/ Time Advance Directives No May 1:52pm Chief Complaint and Reason for Visit Chief Complaint R toe injury headache Chief Complaint headache, n/v Chief Complaint v/d Anxiety;Panic attacks Possible Reason for Referral Specialty Diagnoses / Procedures Referred By Ellie t Referred To Contact CT IMAGING Diagnoses Vision changes Increased severity of headaches Procedures CT BRAIN WO IVC CT HEAD/BRAIN W/O CONTRAST MATERIAL Jessica Stevens, STOCK PULLER.PERSONAL BANKER [address] [place] [address] [place] [address] Referral ID Status Reason Start Date Expiration Date Visits Requested Visits Authorized [id number] Pending Review Auto-Generat ed Referral 05/30/2023 06/28/2024 1 1 Specialty Diagnoses / Procedures Referred By Contac t Referred To Contact [facility] DEPARTMENT Diagnoses Anxiety Panic attacks Bipolar affective disorder, remission status unspecified ([facility]) Difficulty sleeping Procedures CONSULT TO PSYCHIATRY OFFICE/OUTPATIENT [facility] 60-74 MINUTES Jessica Stevens, STOCK PULLER.PERSONAL BANKER [address] [place] [address] Melanie Penn, STOCK PULLER.PERSONAL BANKER [address] [place] [address] Referral ID Status Reason Start Date Expiration Date Visits Requested Visits Authorized [id number] Pending Review PCP Requested Referral 05/30/2023 05/29/2024 1 1 Specialty Diagnoses / Procedures Referred By Contac t Referred To Contact Ophthalmology / [facility] DEPARTMENT Diagnoses New onset type 2 diabetes mellitus (HCC) Procedures CONSULT TO OPHTHALMOLOGY OFFICE/OUTPATIENT NEW HIGH MDM 60-74 MINUTES Jessica Stevens APRN.PERSONAL BANKER [address] [place] [address] [place] [address] Referral ID Status Reason Start Date Expiration Date Visits Requested Visits Authorized [id number] Authorized PCP Requested Referral 05/30/2023 05/29/2024 1 1 Specialty Diagnoses / Procedures Referred By Contbina t Referred To Contact Nutrition Diagnoses New onset type 2 diabetes mellitus (HCC) Procedures CONSULT TO NUTRITION THERAPY MEDICAL NUTRITION ASSMT&IVNTJ INDIV EACH 15 TN MEDICAL NUTRITION ASSMT&IVNTJ INDIV EACH 15 [place] MEDICAL NUTRITION ASSMT&IVNTJ INDIV EACH 15 [place] MEDICAL NUTRITION ASSMT&IVNTJ INDIV EACH 15 TN Jessica Stevens APRN.PERSONAL BANKER [address] [place] [address] [place] [address] Referral ID Status Reason Start Date Expiration Date Visits Requested Visits Authorized [id number] Authorized PCP Requested Referral 05/30/2023 05/29/2024 1 1 Additional Source Comments INFORMATION SOURCE (unrecogn ized section and content) DATE CREATED AUTHOR AUTHOR'S ORGANIZ ATION 12/13/2021 [facility] DATE CREATED AUTHOR AUTHOR'S ORGANIZ ATION 07/11/2022 [facility] DATE CREATED AUTHOR AUTHOR'S ORGANIZ ATION 08/04/2022 [facility] dical Specialist DATE CREATED AUTHOR AUTHOR'S ORGANIZ ATION 05/12/2023 [facility] DATE CREATED AUTHOR AUTHOR'S ORGANIZ ATION 06/29/2023 [facility]ical [facility] DATE CREATED AUTHOR AUTHOR'S ORGANIZ ATION 09/09/2023 [facility] Teams (unrecognized sec tion and content) Team Status: Inactive Member Role Status Dates Services Family [facility] Primary Care Provider Active Richard Powell Jr, MD Emergency Provider Active Team Status: Active Member Role Status Dates Services Family [facility] Primary Care Provider Active Team Status: Inactive Member Role Status Dates Services Family [facility] Primary Care Provider Active Gino Silva MD Emergency Provider Active Team Status: Inactive Member Role Status [facility] Primary Care Provider Active Ismael Burroughs MD Emergency Provider Active Team Status: Inactive Member Role Status Lucy Lorenz DO MIGUELINA Neri Attending Provider Active Credit Collection Specialist Relationship Specialty Start Date End Date Jessica Stevens, STOCK PULLER.PERSONAL BANKER [address] [place] [address] PCP - General Family Medicine 05/30/23 Credit Collection Specialist Relationship Specialty Start Date End Date Jessica Stevens, STOCK PULLER.PERSONAL BANKER [address] [facility] [place] [id number] PCP - General Family Medicine 05/30/23 Credit Collection Specialist Relationship Specialty Start Date End Date Jessica Stevens A, STOCK PULLER.PERSONAL BANKER [address] [facility] [place] [id number] PCP - General Family Medicine 05/30/23 Goals (unrecognized section and content) Goals may be documented in a n alternate sectionGoals may be documented in an alternate sectionGoals may be documented in an alternate section Source Comments (unrecognize d section and content) In the event this informatio n is protected by the Federal Confidentiality of Alcohol and Drug Abuse Patient Records regulations: The Federal rules restrict any use of the information to criminally investigate or prosecute any alcohol or drug abuse patient.[facility] the event this information is protected by the Federal Confidentiality of Alcohol and Drug Abuse Patient Records regulations: The Federal rules restrict any use of the information to criminally investigate or prosecute any alcohol or drug abuse patient.[facility] the event this information is protected by the Federal Confidentiality of Alcohol and Drug Abuse Patient Records regulations: The Federal rules restrict any use of the information to criminally investigate or prosecute any alcohol or drug abuse patient.[facility] the event this information is protected by the Federal Confidentiality of Alcohol and Drug Abuse Patient Records regulations: The Federal rules restrict any use of the information to criminally investigate or prosecute any alcohol or drug abuse patient.[facility] the event this information is protected by the Federal Confidentiality of Alcohol and Drug Abuse Patient Records regulations: The Federal rules restrict any use of the information to criminally investigate or prosecute any alcohol or drug abuse patient.[facility] the event this information is protected by the Federal Confidentiality of Alcohol and Drug Abuse Patient Records regulations: The Federal rules restrict any use of the information to criminally investigate or prosecute any alcohol or drug abuse patient.[facility] the event this information is protected by the Federal Confidentiality of Alcohol and Drug Abuse Patient Records regulations: The Federal rules restrict any use of the information to criminally investigate or prosecute any alcohol or drug abuse patient.[facility] the event this information is protected by the Federal Confidentiality of Alcohol and Drug Abuse Patient Records regulations: The Federal rules restrict any use of the information to criminally investigate or prosecute any alcohol or drug abuse patient.[facility] Reason for Visit (unrecogniz ed section and content) Reason Comments Results Reason Comments Ear Pain right ear pain shoot ing into jaw and down neck x 1 days, left ear pain x 1 day Reason Comments Establish Care Diabetes Was dx 2 weeks ago Reason Comments No Show 1st no show Reason Comments Herpes herpes outbreak, swe ats, vomiting and headache, lesion x 1 day FOR RECORDS PERTAINING TO PATIENTS WHO ARE OR HAVE BEEN ENROLLED IN A CHEMICAL DEPENDENCY/SUBSTANCEABUSE PROGRAM, SOME INFORMATION MAY BE OMITTED. This clinical summary was aggregated from multiple sources. Caution should be exercised in using it in the provision of clinical care. This summary normalizes information from multiple sources, and as a consequence, information in this document may materially change the coding, format and clinical context of patient data. In addition, data may be omitted in some cases. CLINICAL DECISIONS SHOULD BE BASED ON THE PRIMARY CLINICAL RECORDS. [facility] [employer] [facility]. provides no warranty or guarantee of the accuracy or completeness of information in this document.
[2023-09-18 02:19] LABS: Mucous, Urine 0 SEEN /hpf (<or=2+); Red Blood Cells-Urine 0 SEEN /hpf (0-5); White Blood Cells 0 SEEN /hpf (0-5)
[2023-09-18 02:21] LABS: Color, Urine Yellow (Yellow); Glucose, Dipstick Normal (Normal); Ketone-Dipstick Negative (Negative); Leukocyte Esterase-Dipstick Negative /ul (Negative); Nitrite-Dipstick Negative (Negative); Occult Blood-Urine 50 /ul (Negative); Protein-Dipstick 30 mg/dl (Negative); Specific Gravity, Urine 1.025 (1.002-1.030); Urine Bilirubin Dipstick Negative (Negative); Urine Clarity Clear (Clear); Urine Urobilinogen Normal (Normal)
[2023-09-18 02:22] LABS: Absolute Lymphocyte Count 4.24 X10^3/uL (0.83-4.51); Basophil# 0.06 X10^3/uL; Basophil% 0.5 % (0-1); Eosinophil# 0.15 X10^3/uL; Eosinophils% 1.4 % (0-5); Hematocrit 45.7 % (37-47); Hemoglobin 14.6 g/dL (12.0-15.0); Lymphocyte # 4.24 X10^3/ul (0.83-4.51); Lymphocyte % 38.5 % (19-41); Mean Corp Hgb Conc 31.9 g/dL (32-36); Mean Corpuscular Hgb 29.4 pg (27.0-32.0); Mean Corpuscular Volume 92.1 fL (81-99); Mean Platelet Vol. 11.1 fl (6.2-12.0); Monocyte# 0.53 X10^3/uL; Monocyte% 4.8 % (0-10); NRBC Flagged by Analyzer 0 % (0-5); Neutrophil # 6.01 X10^3/uL (2.7-7.7); Neutrophil % 54.6 % (47-70); Platelet Count 342 K/mm3 (150-450); RBC Distribution Width CV 13.4 % (11.6-14.6); RBC Distribution Width SD 45.5 fl (35.1-43.9); Red Blood Count 4.96 M/mm3 (4.2-5.4)
[2023-09-18 02:27] LABS: Internal QC Validated? YES +Cl - CLEAR BKGD; Pregnancy, Urine Negative Negative
[2023-09-18 02:32] LABS: Bacteria 1+ /hpf (None Seen); Squamous Epithelial Cells - UA 0-5 SEEN /hpf (5-10)
[2023-09-18 02:42] LABS: Lactic Acid 1.3 mmol/L (0.4-1.9)
[2023-09-18 02:49] LABS: Anion Gap 5 (5-15); BUN 11 mg/dL (7-18); BUN/Creat Ratio 13.4 RATIO (10-20); Calcium,Total 10.3 mg/dL (8.5-10.1); Chloride 103 mmol/L (98-107); Creatinine, Serum 0.82 mg/dL (0.55-1.02); EST Glomerular Filtration Rate 83 mL/min (>60); Est Glom Filt Rate - Afr Amer 101 mL/min (>60); Estimated Creatinine Clearance 81.11 ml/min; Glucose 133 mg/dL (74-106); Potassium 3.7 mmol/L (3.5-5.1); Sodium Level 138 mmol/L (136-145); Thyroid Stim Hormone (TSH) 2.09 uIU/mL (0.358-3.74)
[2023-09-18 02:56] VITALS: BP 121/80; BP 133/90; BP 137/93; PULSE 69; PULSE 71; PULSE 77
--- NOTE | 2023-09-18 03:23 | EX.ED.DYSGE1 ---
HPI History of Present Illness Chief Complaint: General Illness Informant: patient and spouse/S.O. Narrative Narrative: Patient is a 38-year-old female who states she has a history of opiate addiction as well as previous shingles and migraines. She states for the past few months she has been feeling intermittent palpitations and has also had generalized fatigue. She states she was seen in urgent care previously and diagnosed with a kidney infection and placed on antibiotics. She states she finished those and felt better for a few days but then developed the symptoms of fatigue and palpitations and had concerned that she was developing a repeat infection and with this comes in for evaluation. [facility] Medical History (Updated 09/18/23 @ 03:[address] Abelardo Mcallister, DO) Migraines Opiate addiction Shingles Home Medications omeprazole 20 mg capsule,delayed release 20 mg PO DAILY 05/06/23 [History Last Taken Unknown] Allergy/AdvReac Type Severity Reaction Status Date / Time levofloxacin [From Levaquin] Allergy Hives Verified 06/05/23 10:57 Penicillins Allergy Hives Verified 06/05/23 10:57 Surgical History (Updated 09/18/23 @ 01:36 by Danielle Koenig) Hx of tonsillectomy Social History Smoking Status: Current every day smoker tobacco type: e-cigarettes ROS ROS ED Constitutional Constitutional ED: Reports sweats; Denies chills or fever(s) Eyes Eyes: Denies change in vision ENT ENT ED: Denies sore throat Cardiovascular Cardiovascular: Reports palpitations; Denies chest pain Respiratory/Chest Respiratory/Chest: Denies cough or dyspnea Gastrointestinal Gastrointestinal: Reports nausea; Denies abdominal pain, diarrhea or vomiting Genitourinary Genitourinary ED: Denies dysuria Musculoskeletal Musculoskeletal: Reports myalgias Integumentary Denies rash Neurologic Neurologic: Reports headache(s) Hematologic/Lymphatic Hematologic/Lymphatic: Denies easy bleeding or easy bruising EXAM Physical Exam Const Vital Signs: 09/18/23 01:32 09/18/23 01:37 09/18/23 02:56 Temperature 97.8 F Temperature Source Oral Pulse Rate 85 Pulse Rate [Lying] 69 Pulse Rate [Sitting (for 1 minute prior to obtaining)] 71 Pulse Rate [Standing (for 1 minute prior to obtaining)] 77 Respiratory Rate 20 H Respiratory Effort Normal Non-Labored Respiratory Pattern Normal Blood Pressure 145/87 H Blood Pressure [Lying] 133/90 H Blood Pressure [Sitting (for 1 minute prior to obtaining)] 121/80 H Blood Pressure [Standing (for 1 minute prior to obtaining)] 137/93 H Blood Pressure Mean 106 Blood Pressure Mean [Lying] 104 Blood Pressure Mean [Sitting (for 1 minute prior to obtaining)] 93 Blood Pressure Mean [Standing (for 1 minute prior to obtaining)] 107 Pulse Ox 99 Oxygen Delivery Method Room Air 09/18/23 03:33 Temperature Temperature Source Pulse Rate 77 Pulse Rate [Lying] Pulse Rate [Sitting (for 1 minute prior to obtaining)] Pulse Rate [Standing (for 1 minute prior to obtaining)] Respiratory Rate 15 Respiratory Effort Respiratory Pattern Blood Pressure 137/93 H Blood Pressure [Lying] Blood Pressure [Sitting (for 1 minute prior to obtaining)] Blood Pressure [Standing (for 1 minute prior to obtaining)] Blood Pressure Mean 107 Blood Pressure Mean [Lying] Blood Pressure Mean [Sitting (for 1 minute prior to obtaining)] Blood Pressure Mean [Standing (for 1 minute prior to obtaining)] Pulse Ox 99 Oxygen Delivery Method Positive well nourished and well developed General Appearance ED: well developed HEENT Reports moist mucous membranes HEENT Narrative: No sign of infection noted in the posterior pharynx Eyes PERRL and EOMs intact bilaterally General Eye ED: Negative for scleral icterus Neck supple Neck Narrative: No nuchal rigidity or meningeal signs noted Resp normal respiratory effort and clear to auscultation bilaterally Cardio regular rate and regular rhythm Rate: other Other Details: Heart is regular rate and rhythm without murmurs rubs or gallop No ectopy noted Radial and carotid pulses are equal and symmetric GI non-tender, non-distended and no masses GI Narrative: No voluntary guarding or rigidity or pulsatile mass Bowel sounds are hypoactive consistent with history of opioid addiction No distention or increased tympany noted Auscultation: hypoactive bowel sounds Palpation: soft Back/Spine no CVA tenderness Extremity normal to inspection Extremity Narrative: No asymmetric edema no pitting edema negative Homans' sign bilaterally Neuro oriented x3, CN's II-XII intact bilaterally and no sensory deficits noted Sensorium / Orientation: alert Motor Exam: strength 5/5 throughout Psych Psych Narrative: Patient has a nervous/anxious affect Skin no rashes or lesions noted General Skin Exam: Negative for jaundice MDM MDM MDM Narrative Medical decision making narrative: Patient presented to the ER slightly hypertensive but otherwise with stable vitals. She had multiple complaints but ultimately was concerned that her kidney infection may have returned leading to potential sepsis. Secondary to this basic blood work was obtained. Patient's white count is normal she does not have left shift there is no lactic acidosis and she has stable vitals going against sepsis. She also has no signs of acute kidney injury her thyroid is normal with a normal TSH going against hyper- or hypothyroidism as a cause of her symptoms. By exam she does not have dehydration changes and orthostatic vitals were negative. Her urine shows +1 bacteria but there is no white cells and she does not have dysuria nor is or any CVA pain so do not feel this is true infection and do not feel need to provide antibiotics at this time. Therefore with workup being negative and patient having stable vitals and do not feel there is need for further evaluation and she can follow-up with her family doctor to discuss outpatient testing if symptoms persist History & Record Review Discussion w/independent historian: Patient and Significant other Lab Data Attestation: I reviewed the patient's lab results. Labs: Laboratory Results - last 24 hr 09/18/23 02:00 WBC 11.0 RBC 4.96 Hgb 14.6 Hct 45.7 MCV 92.1 MCH 29.4 MCHC 31.9 L RDW Std Deviation 45.5 H RDW Coeff of Malina 13.4 Plt Count 342 MPV 11.1 Immature Gran % (Auto) 0.200 Neut % (Auto) 54.6 Lymph % (Auto) 38.5 [place] % (Auto) 4.8 Eos % (Auto) 1.4 Baso % (Auto) 0.5 Absolute Neuts (auto) 6.0 Absolute Lymphs (auto) 4.24 Nucleated RBC % 0 Sodium 138 Potassium 3.7 Chloride 103 Carbon Dioxide 30.0 Anion Gap 5 BUN 11 Creatinine 0.82 Estim Creat Clear Calc 81.11 Est GFR (MDRD) Af Amer 101 Est GFR (MDRD) Non-Af 83 BUN/Creatinine Ratio 13.4 Glucose 133 H Lactic Acid 1.3 Calcium 10.3 H Magnesium 2.0 TSH 2.09 Urine Color Yellow Urine Clarity Clear Urine pH 6.0 Ur Specific Daisy 1.025 Urine Protein 30 H Urine Glucose (UA) Normal Urine Ketones Negative Urine Occult Blood 50 H Urine Nitrite Negative Urine Bilirubin Negative Urine Urobilinogen Normal Ur Leukocyte Esterase Negative Urine RBC 0 SEEN Urine WBC 0 SEEN Ur Squamous Epith Cells 0-5 SEEN Urine Bacteria 1+ Urine Mucus 0 SEEN Urine Test Negative Discharge Plan Triage Chief Complaint: General Illness ED Provider: Abelardo Mcallister Dx/Rx/DC Orders Clinical Impression: Palpitations, Generalized weakness Instructions: ED Palpitations, ED Weakness (Uncertain Cause) Prescriptions: No Action omeprazole 20 mg capsule,delayed release(DR/EC) 20 mg PO DAILY Primary Care Provider: Jessica Stevens [employer] Referrals: Jessica Stevens [employer], [employer] [facility]-C [Primary Care Provider] - Activity Restrictions/Additional Instructions: Your workup today showed no signs of infection or kidney damage or derangement to your heart. Please follow-up with your doctor to discuss further testing regarding your symptoms and return to the ER should you have any further concerns Disposition Disposition: Home, Self Care Discharge Date/Time: 09/18/23 03:34
[2023-09-18 03:33] VITALS: BP 137/93; PULSE 77; RESP 15; O2SAT 99
== END 2023-09-18 03:34 | disposition home or self-care (01) ==
PROVIDERS: Emergency Provider Emergency Medicine; PCP Nurse Practitioner Family; Visit Provider Emergency Medicine
DX: R00.2 Palpitations (principal); R53.1 Weakness; F17.290 Nicotine dependence, other tobacco product, uncomplicated
CPT/HCPCS: 80048; 81001; 81025; 83605; 83735; 84443; 85025; 93005; 99284; A4216